=== PATIENT | female | born 1940 | race Caucasian/White ===

== ENCOUNTER 2017-08-01 14:42 | Inpatient (IN) | payer MEDICARE, OTHER ==
[~2017-08-01] VITALS: Ht 157.5 cm; Wt 70.8 kg
--- NOTE | ~2017-08-01 | EKG ---
[place] [address] ELECTROCARDIOGRAM REPORT Name: BACILIO LEZAMA [id number] Admission: 08/01/17 Attend Phys: Discharge: Date of : 38 Report #: [id number] THIS REPORT FOR: //name// [facility] ED Test Date: 2017-08-01 Test Time: 15:19:17 Pat Name: BACILIO LEZAMA Department: Room: Gender: F Valuation Manager: : 1940 Requested By: Tara Mckinney Order Number: [id number] MD: Measurements Intervals [place] Rate: 112 P: -79 WV: 143 QRS: 32 QRSD: 136 T: 50 QT: 313 QTc: 428 Interpretive Statements Sinus or ectopic atrial tachycardia Nonspecific intraventricular conduction delay Minimal ST depression, diffuse leads Baseline wander in lead(s) I,II,aVR Compared to ECG 05/07/2017 12:49:57 Intraventricular conduction delay now present ST (T wave) deviation now present Sinus rhythm no longer present Ventricular premature complex(es) no longer present [email or web address] By: [id number] [place], [place] /MICHAEL
[~2017-08-01 14:42] MED LIST: ANASTROZOLE1 MG PO; ASPIRIN81 M2 PO; ATORVASTATIN CA40 MG PO; B12INJ IM; BENICAR20 MG PO; CALCIUM 600 +1 EAC1 PO; COZAAR 25 MG TA25 M1 PO; CRESTOR40 MG PO; EFFEXOR25 MG PO; EFFEXOR75 MG PO; LORATIDINE 10 M10 M1 PO; MAGNESIUM OXID400 MG PO; MELATONIN5 M1 PO; METOPROLOL SUCC25 M1 PO; MULTIVITAMINS1 EAC7 PO; NEXIUM 40 MG CA40 M1 PO; NITROGLYCERIN0.4 MG SL; OXYBUTYNIN 5 MG5 M2 PO; POTASSIUM99 M1 PO; PRILOSEC 20 MG20 MG PO; RANITIDINE 150150 MG PO; SANCTURA XR60 M1 PO; TOPROL XL25 MG PO; ULTRA COQ1075 MG PO; VITAMIN B-12500 MCG PO; VITAMIN D10000 UNIT PO; VITAMIN D2000 UNIT PO; XANAX 0.25 MG0.25 MG PO
[2017-08-01 14:54] VITALS: BP 154/75
[2017-08-01 15:07] LABS: HEMATOCRIT 35.7 % (37.0-47.0); HEMOGLOBIN 12.1 gm/dL (12.0-15.0); MCH 32.6 pg (26.0-34.0); MCHC 33.7 g/dL (28.0-37.0); MCV 96.7 fL (80.0-100.0); MPV 7.6 fl. (7.2-11.1); NUCLEATED RBCS 0 /100WBC; PLATELET COUNT* 282 thou/uL (150-400); RDW-CV 13.7 % (10.5-14.5); WBC 14.7 thou/uL (4.0-11.0)
[2017-08-01 15:11] LABS: ANION GAP 9 mmol/L (7-16); BUN 13 mg/dL (7-18); CALCIUM 8.5 mg/dL (8.5-10.1); CHLORIDE 91 mmol/L (98-107); CO2 30 mmol/L (21-32); CREATININE 1.3 mg/dL (0.6-1.3); GLUCOSE 124 mg/dL (70-99); POTASSIUM 3.4 mmol/L (3.5-5.1); SODIUM 130 mmol/L (136-145)
[2017-08-01 15:12] LABS: APTT 29.9 Seconds (25.0-31.3); INR 1.1; PROTIME 10.3 Seconds (9.20-11.50)
[2017-08-01] MEDS ORDERED: TOPROL XL25 MG PO (15:15)
[2017-08-01] MEDS ORDERED: DOXEPIN 25 MG C25 MG PO (15:16)
[2017-08-01] MEDS ORDERED: ZANTAC 150MG T150 MG PO (15:16)
[2017-08-01] MEDS ORDERED: OMEPRAZOLE40 MG PO (15:16)
[2017-08-01] MEDS ORDERED: IRON325 PO (15:16)
[2017-08-01] MEDS ORDERED: ZINC30 M1 PO (15:16)
[2017-08-01 15:20] LABS: SALICYLATE < 2.8 mg/dL (2.8-20.0)
[2017-08-01 15:21] LABS: ACETAMINOPHEN < 2 ug/mL (10-30); ALCOHOL < 10 mg/dL (<10)
[2017-08-01 15:22] LABS: ALBUMIN 3.4 g/dL (3.4-5.0); ALKALINE PHOSPHATASE 119 U/L (46-116); NT-PRO BRAIN NAT PEPTIDE 700 pg/mL (<300); SGOT 47 U/L (15-37); SGPT 46 U/L (30-65); TOTAL BILIRUBIN 0.7 mg/dL (<0.1-1.0); TOTAL PROTEIN 7.2 g/dL (6.4-8.2); TROPONIN-I LEVEL <0.06 ng/mL (<0.06)
[2017-08-01 15:34] LABS: ABSOLUTE LYMPHOCYTES 0.7 thou/uL (0.8-5.3); ABSOLUTE NEUTROPHILS 12.9 thou/uL (1.6-8.1)
[2017-08-01 15:35] LABS: PLATELET ESTIMATE ADEQUATE
[2017-08-01 17:57] VITALS: BP 114/57
[2017-08-01 18:47] VITALS: BP 129/106
--- NOTE | 2017-08-01 19:17 | NUR ---
RECEIVED PT FROM ER. PT 93% ON 4L NC. ADMISSION ASSESSMENT STARTED NOT COMPLETED - WILL DEFER TO ENTRY LEVEL TRUCK DRIVER. VSS. BED IN LOW POSITION. BED ALARM ON.
[2017-08-01 20:00] VITALS: BP 120/54
[2017-08-01 23:08] LABS: URINE BILIRUBIN NEGATIVE (Negative); URINE BLOOD TRACE (Negative); URINE CLARITY CLEAR; URINE COLOR YELLOW; URINE GLUCOSE-RANDOM NEGATIVE (Negative); URINE KETONES NEGATIVE (Negative); URINE LEUKOCYTES-REFLEX NEGATIVE (Negative); URINE NITRITE-REFLEX NEGATIVE (Negative); URINE PROTEIN NEGATIVE (Negative); URINE UROBILINOGEN 0.2 E.U./dl (0.2-1.0)
[2017-08-01 23:15] LABS: AMP/METHAMP Negative (Negative); BARBITURATES Negative (Negative); BENZODIAZEPINES Negative (Negative); COCAINE Negative (Negative); METHADONE Negative (Negative); OPIATES Negative (Negative); PCP Negative (Negative); THC Negative (Negative)
[2017-08-01 23:25] LABS: INFLUENZA A ANTIGEN None Detected (None Detect)
[2017-08-01 23:50] VITALS: BP 117/53
[2017-08-02] VITALS (9 sets, daily range): BP systolic 96–148; BP diastolic 37–61
[2017-08-02 05:15] LABS: CALCIUM 7.4 mg/dL (8.5-10.1); CREATININE 1.1 mg/dL (0.6-1.3); MAGNESIUM 1.5 mg/dL (1.8-2.4); POTASSIUM 3.9 mmol/L (3.5-5.1)
--- NOTE | 2017-08-02 05:18 | NUR ---
RECEIVED REPORT FROM STALIN VASQUEZ AT 1915. NURSING ASSESSMENT COMPLETED AT START OF SHIFT, PT VOICED NO CONCERNS, AAOX4, DROWSY, DENIES PAIN THIS SHIFT, ON TELE MONITOR TRACING SINUS RHYTHM. FALL PRECAUTIONS IN PLACE, HOURLY ROUNDING COMPLETED, CALL LIGHT WITHIN REACH. PT POSITIVE FOR INFLUENZA B, PLACED IN ISOLATION.
[2017-08-02 05:37] LABS: HEMATOCRIT 33.2 % (37.0-47.0); HEMOGLOBIN 10.8 gm/dL (12.0-15.0); MCH 32.9 pg (26.0-34.0); MCHC 32.4 g/dL (28.0-37.0); MCV 101.6 fL (80.0-100.0); MPV 7.9 fl. (7.2-11.1); RBC 3.27 mil/uL (4.20-5.00); RDW-CV 13.9 % (10.5-14.5); WBC 13.1 thou/uL (4.0-11.0)
--- NOTE | 2017-08-02 13:08 | EKG ---
[place] [address] ELECTROCARDIOGRAM REPORT Name: BACILIO LEZAMA Room: [address] ADM IN M.R.#: [id number] Admission: 08/01/17 Attend Phys: Annmarie Tapia MD Discharge: Date of : 39 Report #: [id number] THIS REPORT FOR: //name// [facility] ED Test Date: 2017-08-01 Test Time: 15:19:17 Pat Name: BACILIO LEZAMA Department: Room: [facility] Gender: F Salesperson Furniture: MS : 1940 Requested By: Tara Mckinney Order Number: [id number] MD: Abdias Menon Measurements Intervals [place] Rate: 112 P: -79 UT: 143 QRS: 32 QRSD: 136 T: 50 QT: 313 QTc: 428 Interpretive Statements Sinus or ectopic atrial tachycardia Nonspecific intraventricular conduction delay Minimal ST depression, diffuse leads Baseline wander in lead(s) I,II,aVR Compared to ECG 05/07/2017 12:49:57 Intraventricular conduction delay now present ST (T wave) deviation now present Sinus rhythm no longer present Ventricular premature complex(es) no longer present Electronically Signed On 08-02-2017 13:07:47 MACHINE ENGINEER by Abdias Menon [email or web address] <ELECTRONICALLY SIGNED> By: Abdias Menon MD, [facility] 08/02/17 1307 1519 1519 Abdias Menon MD, [facility] /EPI
--- NOTE | 2017-08-02 15:33 | NUR ---
CM ASSESSMENT: Pt is A&O. Resides at home with her . Independent with ADLs. No DME. Hx of HH, no SNF. Supportive family that is involved in POC. Pt plans to return home once medically stable. Following.
--- NOTE | 2017-08-02 15:43 | NUR ---
PT'S MEDICAL CHART REVIEWED. PT VOICES NO CONCERNS W/ REGARDS TO DISCHARGE TO HOME. PT INDICATES SHE HAS BEEN UP TO BATHROOM W/O NOTED PROBLEMS. PT DEMO INDEP BED MOB AND TRANSFERS, INDEP GAIT W/O DME SUPPORT IN ROOM. ACUTE PT SERVICES ARE NOT INDICATED AT THIS TIME.
--- NOTE | 2017-08-02 16:52 | NUR ---
PT PROGRESSING TOWARDS GOALS. NO COMPLAINTS OF PAIN. DENIES ANY SOA. TITRATED TO ROOM AIR PER RESPIRATORY THERAPY. UP IN ROOM WITH STANDBY ASSIST. GAIT IS STEADY. IVF INFUSING. TOLERATING HER DIET WELL WITHOUT NAUSEA OR VOMITING. HOURLY ROUNDING CHARTED. CALL LIGHT WITHIN REACH. WILL CONTINUE TO MONITOR.
[2017-08-03 03:50] VITALS: BP 117/60
--- NOTE | 2017-08-03 04:18 | NUR ---
ASSUMED CARE OF PT AT 1930, NURSING ASSESSMENT COMPLETED AT START OF SHIFT, PT CONTINUES ON TELE MONITOR, HOURLY ROUNDING COMPLETED, PT PROGRESSING TOWARDS GOALS, FALL PRECAUTIONS IN PLACE, CALL LIGHT WITHIN REACH, PT IN DROPLET PRECAUTIONS.
[2017-08-03 04:43] LABS: ABSOLUTE LYMPHOCYTES 1.3 thou/uL (0.8-5.3); ABSOLUTE MONOCYTES 0.4 thou/uL (0.0-1.2); BASOPHILS 0.1 %; EOSINOPHILS 0.4 %; HEMATOCRIT 25.6 % (37.0-47.0); LYMPHOCYTES 12.1 %; MCH 33.9 pg (26.0-34.0); MCHC 34.6 g/dL (28.0-37.0); MONOCYTES 3.6 %; MPV 8.2 fl. (7.2-11.1); NUCLEATED RBCS 0 /100WBC; PLATELET COUNT* 231 thou/uL (150-400); POLYS 83.8 %; RBC 2.61 mil/uL (4.20-5.00); RDW-CV 13.8 % (10.5-14.5); WBC 10.8 thou/uL (4.0-11.0)
[2017-08-03 04:50] LABS: HEMOGLOBIN 8.8 gm/dL (12.0-15.0)
[2017-08-03 05:11] LABS: ALBUMIN 2.3 g/dL (3.4-5.0); CALCIUM 7.2 mg/dL (8.5-10.1); CREATININE 1.1 mg/dL (0.6-1.3); MAGNESIUM 1.7 mg/dL (1.8-2.4); PHOSPHORUS* 2.2 mg/dL (2.5-4.9); POTASSIUM 3.6 mmol/L (3.5-5.1)
[2017-08-03 08:40] VITALS: BP 175/71
[2017-08-03 12:01] VITALS: BP 155/76
[2017-08-03 13:17] LABS: CALCIUM 7.6 mg/dL (8.5-10.1); CREATININE 1.1 mg/dL (0.6-1.3); MAGNESIUM 1.8 mg/dL (1.8-2.4); POTASSIUM 3.7 mmol/L (3.5-5.1)
--- NOTE | 2017-08-03 14:00 | NUR ---
ASSUMED CARE OF PT AFTER RECEIVING REPORT. VS WNL. SR ON MONITOR. ASSESSMENT COMPLETE AND DOCUMENTED. PT STATES SHE IS UNDER A LOT OF STRESS AT HOME. STATES THAT SHE IS CAREGIVER FOR HER . PROVIDED THERAPEUTIC COMMUNICATION TECHNIQUE: LISTENING, PRESENCE. PT STATES THAT HER & FAMILY IN THEIR HOME HAVE THE FLU ALSO. IV AZITHROMYCIN INFUSING. PT CALLED FOR ASSIST, STATED THAT IV IS HURTING AND WANTED IT STOPPED. IV INFUSION DISCONTINUED AT PT REQUEST. RETURNED TO ROOM AND PT HELD UP IV CATHETER AND STATED THAT SHE HAD TAKEN THE IV OUT. SHE REFUSED A NEW START OF IV. CONTACTED DR. FRIEDMAN, WHO GAVE ORDER FOR ORAL AZITHROMYCIN AND PANTOPRAZOLE.
--- NOTE | 2017-08-03 15:42 | NUR ---
RECIEVED O.T. EVAL AND CHART REVIEWED. PT. IS UP AD MICHEAL IN ROOM AND REQUIRES NO ASSIST FOR ADLS. PT. AGREED THAT SHE DOESN'T HAVE O.T. NEEDS AND HAD JUST GOTTEN OUT OF THE SHOWER. NO O.T. SERVICES ARE INDICATED AT THIS TIME SINCE PT. IS AT MOD I/INDEPENDENT LEVEL FOR ADLS.
[2017-08-03 16:08] VITALS: BP 137/61; BP 167/61
[2017-08-03 20:00] VITALS: BP 164/66
--- NOTE | 2017-08-03 22:09 | NUR ---
PT REFUSED IV MULTIPLE TIMES THIS SHIFT DESPITE VERBAL EDUCATION ON NEED FOR ANTIBITOCS. PT STATES "I AM DONE HAVING MY ARMS TORN UP" "THEY HURT TOO BAD" THIS RN NOTIFIED THE COMMISSIONS SPECIALIST PHYSICIAN, HE STATED THEY WILL NEED TO READDRESS IN THE AM. PT ALSO REFUSED HER BED ALARM STATING THAT SHE IS NOT A FALL RISK AND CAN WALK JUST FINE. BED ALARM IS OFF AT THIS TIME.
[2017-08-04] VITALS: BP 142/59
[2017-08-04 04:00] VITALS: BP 160/75
[2017-08-04 04:20] LABS: HEMATOCRIT 27.3 % (37.0-47.0); HEMOGLOBIN 9.4 gm/dL (12.0-15.0); MCH 33.4 pg (26.0-34.0); MCHC 34.4 g/dL (28.0-37.0); MPV 7.8 fl. (7.2-11.1); RBC 2.81 mil/uL (4.20-5.00); RDW-CV 13.7 % (10.5-14.5); WBC 9.7 thou/uL (4.0-11.0)
[2017-08-04 04:27] LABS: CREATININE 1.1 mg/dL (0.6-1.3); POTASSIUM 3.9 mmol/L (3.5-5.1)
--- NOTE | 2017-08-04 04:41 | NUR ---
ASSUMED PT CARE AT 1930, PT IS A&OX4 PT HAS REFUSED HER IVS THIS SHIFT WELL HAVING HER BED ALARM ON THIS SHIFT. PT WAS GIVEN LOTS OF VERBAL EDUCATION ON NEED FOR ANTIBITOICS AND NEED FOR BED ALARM. PT IS ON ISOLATION FOR FLU B. PT IS TRACING NSR ON THE MONITOR, ON 4L NC SATTING MID TO HIGH 90'S. BED IN LOW POSITION, CALL LIGHT IN REACH. HOURLY ROUNDING COMPLETED FOR PT SAFETY.
--- NOTE | 2017-08-04 07:25 | NUR ---
CHANGE OF SHIFT, BEDSIDE REPORT GIVEN ASSUNMED PATIENT CARE PATIENT SEEN AT BEDSIDE, ASLEEP
[2017-08-04 08:00] VITALS: BP 109/91
[2017-08-04 11:41] VITALS: BP 121/51
[2017-08-04 15:48] VITALS: BP 149/64
--- NOTE | 2017-08-04 19:30 | NUR ---
PATIENT REMAINS A AND O X 4 NSR LUNGS CTA/DIM/RA O2 SAT LOW TO MID 90S GOOD APPETITE LAST BM T-1 GOOD UO UP WITH STANDBY ASSIST TO BATHROOM L FA SKINTEAR GAUZE AND TAPE REFUSED IV ACCCESS, DR WILLARD NOTIFIED CO RYAN TREATED WITH TYLENOL AND RELIEVED CALL LIGHT IN PALCE AND INSTRUCTION GIVEN AND FOLLOEWED MRSA SWAB SENT ABN LABS HGB 9.4
[2017-08-04 20:00] VITALS: BP 145/58
[2017-08-05] VITALS: BP 132/65
[2017-08-05 04:00] VITALS: BP 147/63
--- NOTE | 2017-08-05 04:35 | NUR ---
PT REFUSING IV AND IVPB.
--- NOTE | 2017-08-05 04:39 | NUR ---
PT ALERT ORIENTED. TELEMETRY SHOWS SR. PT UP AD MICHEAL IN ROOM. REFUSE IV SL. REFUSE IV ABX. DENIES PAIN. WILL CONTINUE TO MONITOR.
[2017-08-05 04:59] LABS: CALCIUM 8.5 mg/dL (8.5-10.1); CREATININE 1.2 mg/dL (0.6-1.3); POTASSIUM 3.6 mmol/L (3.5-5.1)
[2017-08-05 09:00] VITALS: BP 109/79
--- NOTE | 2017-08-05 09:00 | NUR ---
ASSUMED PT. CARE AND RECEIVED REPORT AT 0730. PT A/OX4, VSS, MONITOR ON TRACING SR WITH PAC. PT. DENIES PAIN, BUT C/O HEADACHE AND CHRONIC BACK ITCHING. FULL ASSESSMENT COMPLETED, REFER TO CHARTING. PT ON RA @ 92%. PT. TREATED WITH TYLENOL FOR HEADACHE, DR. FIREDMAN NOTIFIED OF PT. COMPLAINT OF "ITCHY BACK". PT. REPORTS SHE TAKES ANTIHISTAMINE AT HOME TID, HOWEVER SHE DOES KNOW THE NAME. ORDER RECEIVED FOR PERIACTIN BID. PT. REMAINS IN DOPLET ISOLATION. CALL LIGHT IN REACH, WILL CONTINUE WITH PLAN OF CARE.
[2017-08-05 12:07] VITALS: BP 147/58
--- NOTE | 2017-08-05 12:17 | CON ---
[address] [address] CONSULTATION Name: LISEBACILIO MARIE Room: [address] IN M.R.#: [id number] Admission: 08/01/17 Attend Phys: Annmarie Tapia MD Discharge: Date of : 39 Report #: [id number] THIS REPORT FOR: //name// CC: Annmarie Birmingham DATE OF SERVICE: 08/04/2017 REASON FOR CONSULTATION: Anemia. REQUESTING PHYSICIAN: Dr. Tapia. HISTORY OF PRESENT ILLNESS: The patient is a 77-year-old woman who was admitted to the hospital with complaints of cough, generalized malaise and myalgia. She was found to have pneumonia and influenza B. She had normal hemoglobin on admission, but during the hospitalization she developed anemia. Hematology consult has been requested. The patient is feeling better today. She says her appetite is better. She is eating actually in the bed. She does not have complaints of shortness of breath. Continues to have some cough. She states that she does not have melena or diarrhea. She thinks she is updated on colonoscopy and she does not have a history of severe anemia, but occasionally when she is in the hospital, she has been told that she has mild anemia. Denies weight loss or bone pain. PAST MEDICAL HISTORY: Significant for coronary artery disease, history of breast cancer, hyperlipidemia, cardiac arrhythmias. FAMILY HISTORY: Noncontributory. SOCIAL HISTORY: She enjoys a couple of glasses several times a week of alcohol, does not smoke currently. REVIEW OF SYSTEMS: See above. PHYSICAL EXAMINATION: GENERAL: Reveals a well-developed, well-nourished female, not in acute distress. VITAL SIGNS: Blood pressure 121/51, heart rate is 80, temperature 98.0, respiration is 18. HEENT: Does not reveal thrush. HEART: Normal S1, S2. LUNGS: Clear. ABDOMEN: Soft. No organomegaly. EXTREMITIES: No edema. MENTAL STATUS: Alert, [place] [id number] CONSULTATION Name: ARSRIKANTHBACILIO MARIE Room: [address] IN ..#: [id number] Admission: 08/01/17 Attend Phys: Annmarie Tapia MD Discharge: Date of : 39 Report #: [id number] LABORATORY DATA: White count 9.7, hemoglobin 9.4, platelets 285. Sodium 139, potassium 3.9. Key test was negative. ASSESSMENT AND PLAN: Anemia, most likely secondary to current disease and bone marrow suppression due to infection/sepsis, since she has had mild anemia in the past, seems macrocytic, plan to order B12 and folate. Thank you very much for allowing me to participate in the care of this patient. I will follow the patient with you. We will see the patient on Sunday. There is no concern for hemolysis at this point. <ELECTRONICALLY SIGNED> By: Muna Wise MD 08/05/17 1217 1253 [id number] bonnie Ricketts
[2017-08-05 15:44] VITALS: BP 148/64
--- NOTE | 2017-08-05 19:52 | NUR ---
PT. STABLE THROUG OUT SHIFT. CONTINUES TO COMPLAIN ABOUT ITCHING TO BACK, HOME MED REORDERED AND GIVEN FOR SYMPTOMS. DR. FRIEDMAN ONTO UNIT, ORDERED CONTINUING IV ANTIBIOTICS DUE TO NEW CHEST XRAY. PT. REFUSING IV ACCESS. DR. FRIEDMAN AWARE AND DISCUSSED WITH PT, SHE STATED SHE WOULD THINK ABOUT IT. WHEN DR. FRIEDMAN LEFT THE ROOM SHE TOLD ME NO SHE DIDN'T LIKE THEM. PT. EDUCATED ON NEED FOR ANTIBIOTICS DUE TO NEW INFILTRATES/WORSENING XRAY. DISCUSSED MULTIPLE TIMES AND PT. CONTINUES TO REFUSE. PT. EDUCATED THAT HER BREATHING/SYMPTOMS COULD BECOME WORSE AND SHE MAY EMERGENTLY HAVE TO HAVE A LINE PLACED. PT. CONTINUES TO DECLINE IV BEING STARTED. SECOND RN ELSA DISCUSSED IV PLACEMENT WITH HER WELL, CONTINUED TO DECLINE. HOURLY ROUNDING COMPLETED THROUGH OUT THE DAY FOR PT. SAFETY.
[2017-08-05 20:00] VITALS: BP 125/44
[2017-08-06 00:47] VITALS: BP 121/66
--- NOTE | 2017-08-06 03:45 | NUR ---
ASSUMED PT CARE AT 1930, PT IS A&OX4, PT C/O SOME ITCHING THROUGHOUT THE SHIFT AND A HEADACHE. ON RA SATTING MID TO LOW 90'S. PT IS TRACING NSR ON THIS MONITOR, PT HAD AN EPISODE OF SVT, WITH A 4 BEAT RUN OF VTACH THIS SHIFT. PT IS ON ISOLATION FOR THE FLU. PT IS STILL REFUSING HER IV, EVEN AFTER EDUCATION ON NEED FOR AN IV WELL NEED FOR IV ANTIBITOTICS. PT HAS CONTINUED TO REFUSE. BED IN LOW POSITION, CALL LIGHT IN REACH, HOURLY ROUNDING COMPLETED FOR PT SAFETY.
[2017-08-06 04:10] VITALS: BP 125/68
[2017-08-06 04:41] LABS: CALCIUM 8.1 mg/dL (8.5-10.1); CREATININE 1.2 mg/dL (0.6-1.3); POTASSIUM 3.5 mmol/L (3.5-5.1)
[2017-08-06 08:34] VITALS: BP 149/67
[2017-08-06] MEDS ORDERED: CEFUROXIME500 MG PO (10:16)
[2017-08-06] MEDS ORDERED: AZITHROMYCIN 2250 MG PO (10:16)
[2017-08-06] MEDS ORDERED: MUCINEX600 MG PO (10:16)
[2017-08-06] MEDS ORDERED: OSELB75 PO (10:16)
[2017-08-06] MEDS ORDERED: FOLIC ACID1 MG PO (10:16)
[2017-08-06 10:51] VITALS: BP 149/67
[2017-08-06 13:32] VITALS: BP 149/67
--- NOTE | 2017-08-06 13:32 | NUR ---
PATIENT LEFT UNIT AT 1230. ALERT AND ORIENTED X4. UP AD MICHEAL IN ROOM. DENIES PAIN AND NAUSEA. NO IV AT TIME OF DISCHARGE. ALL PERSONAL ITEMS LEFT WITH PATIENT. DISCHARGE INSTRUCTIONS AND NEW MEDICATION INFORMATION SENT WITH PATIENT. VSS ON ROOM AIR. HOURLY ROUNDS HAVE BEEN MAINTAINED THROUGHOUT SHIFT. LEFT WITH DAUGHTER VIA CAR.
== END 2017-08-06 13:00 | disposition home or self-care (01) | DRG 871 ==
LOC: M.ERS 14:42 → M.2W 16:58 → M.TBA-ER 16:58 → M.2W 18:11
PROVIDERS: Emergency Medicine; Family Medicine; Nurse Practitioner Family; ADMIT Internal Medicine
DX: A41.9 Sepsis, unspecified organism (principal); J96.01 Acute respiratory failure with hypoxia; I26.99 Other pulmonary embolism without acute cor pulmonale; J15.9 Unspecified bacterial pneumonia; E87.1 Hypo-osmolality and hyponatremia; K21.9 Gastro-esophageal reflux disease without esophagitis; E78.00 Pure hypercholesterolemia, unspecified; I25.10 Atherosclerotic heart disease of native coronary artery without angina pectoris; D64.9 Anemia, unspecified; E87.6 Hypokalemia; J11.1 Influenza due to unidentified influenza virus with other respiratory manifestations; E83.39 Other disorders of phosphorus metabolism; E83.42 Hypomagnesemia; Z79.899 Other long term (current) drug therapy; Z88.0 Allergy status to penicillin; Z85.3 Personal history of malignant neoplasm of breast; Z95.5 Presence of coronary angioplasty implant and graft; Z90.710 Acquired absence of both cervix and uterus; I25.2 Old myocardial infarction; Z88.6 Allergy status to analgesic agent; Z88.2 Allergy status to sulfonamides; Z87.891 Personal history of nicotine dependence; Z79.82 Long term (current) use of aspirin; Z28.21 Immunization not carried out because of patient refusal

== ENCOUNTER 2017-10-06 20:11 | Inpatient (IN) | payer MEDICARE, OTHER ==
[~2017-10-06] VITALS: Ht 157.5 cm; Wt 35.2 kg
--- NOTE | ~2017-10-06 | PROC ---
[facility] [address] [place] [address] PROCEDURE REPORT Name: BACILIO LEZAMA Room: [address] IN M.R.#: [id number] Admission: 10/06/17 Attend Phys: Ar Hall, Discharge: 10/10/17 Date of : 39 Report #: [id number] THIS REPORT FOR: //name// FOR GI report, please see the Provation report in Perceptive 7 content. By: 0651Medical Records Staff WAYNE /DANNI
[~2017-10-06 20:11] MED LIST changes: +AZITHROMYCIN 2250 MG PO; +CEFUROXIME500 MG PO; +DOXEPIN 25 MG C25 MG PO; +FOLIC ACID1 MG PO; +IRON325 PO; +MUCINEX600 MG PO; +OMEPRAZOLE40 MG PO; +OSELB75 PO; +ZANTAC 150MG T150 MG PO; +ZINC30 M1 PO
[2017-10-06 20:17] VITALS: BP 125/52
[2017-10-06 20:33] LABS: ABSOLUTE EOSINOPHILS 0.1 thou/uL (0.0-0.7); ABSOLUTE LYMPHOCYTES 1.1 thou/uL (0.8-5.3); ABSOLUTE MONOCYTES 0.6 thou/uL (0.0-1.2); ABSOLUTE NEUTROPHILS 5.4 thou/uL (1.6-8.1); BASOPHILS 0.4 %; HEMATOCRIT 32.3 % (37.0-47.0); HEMOGLOBIN 11.2 gm/dL (12.0-15.0); LYMPHOCYTES 15.6 %; MCH 33.3 pg (26.0-34.0); MCHC 34.7 g/dL (28.0-37.0); MCV 95.9 fL (80.0-100.0); MONOCYTES 8.7 %; MPV 7.4 fl. (7.2-11.1); NUCLEATED RBCS 0 /100WBC; PLATELET COUNT* 279 thou/uL (150-400); POLYS 74.3 %; RBC 3.37 mil/uL (4.20-5.00); RDW-CV 13.4 % (10.5-14.5); WBC 7.3 thou/uL (4.0-11.0)
[2017-10-06 20:40] LABS: POTASSIUM 3.9 mmol/L (3.5-5.1)
[2017-10-06 20:44] LABS: ALBUMIN 3.8 g/dL (3.4-5.0); TOTAL BILIRUBIN 0.6 mg/dL (<0.1-1.0)
[2017-10-06 22:09] VITALS: BP 125/58
[2017-10-06 23:00] VITALS: BP 152/62
[2017-10-06] MEDS ORDERED: ARICEPT10 M1 PO (23:26)
[2017-10-06] MEDS ORDERED: ROPINIROLE HCL5 MG PO (23:29)
[2017-10-06] MEDS ORDERED: VISTARIL 25 MG25 M1 PO (23:30)
--- NOTE | 2017-10-07 05:20 | NUR ---
PT TO FLOOR AT 2230. A&O X4 CALM COOPERITVE. PT MED/SURG STATUS. NPO FOR N/V. PT IS STAND BY ASSIST. VITALS WNL. FALL PRECAUTIONS IN PLACE. HOURLY ROUNDING FOR SAFETY.
[2017-10-07 08:00] VITALS: BP 152/49
[2017-10-07 08:33] LABS: ABSOLUTE EOSINOPHILS 0.1 thou/uL (0.0-0.7); ABSOLUTE LYMPHOCYTES 1.3 thou/uL (0.8-5.3); ABSOLUTE MONOCYTES 0.5 thou/uL (0.0-1.2); ABSOLUTE NEUTROPHILS 3.3 thou/uL (1.6-8.1); BASOPHILS 0.8 %; EOSINOPHILS 2.7 %; HEMOGLOBIN 9.8 gm/dL (12.0-15.0); LYMPHOCYTES 23.9 %; MCH 33.3 pg (26.0-34.0); MCHC 34.8 g/dL (28.0-37.0); MCV 95.6 fL (80.0-100.0); MONOCYTES 9.9 %; MPV 7.6 fl. (7.2-11.1); NUCLEATED RBCS 0 /100WBC; PLATELET COUNT* 226 thou/uL (150-400); POLYS 62.7 %; RBC 2.93 mil/uL (4.20-5.00); RDW-CV 13.7 % (10.5-14.5); WBC 5.3 thou/uL (4.0-11.0)
[2017-10-07 08:46] LABS: CALCIUM 7.6 mg/dL (8.5-10.1); CREATININE 1.4 mg/dL (0.6-1.3); MAGNESIUM 1.8 mg/dL (1.8-2.4); POTASSIUM 4.1 mmol/L (3.5-5.1); TOTAL BILIRUBIN 0.3 mg/dL (<0.1-1.0); TOTAL PROTEIN 5.7 g/dL (6.4-8.2)
--- NOTE | 2017-10-07 10:48 | NUR ---
ASSUMED PT CARE AT 0700 PT IS ALERT AND ORIENTED X 4 PT IS UP WITH SBA PT IS A FALL RISK BED ALARM IS ON, PT IS MED SURG STATUS PT VSS PT DENIES NAUSEA OR VOMITING, PT USES CALL LIGHT APPRORPIATELY, PT IS PLESANT AND COOPERATIVE, WILL CONTINUE TO MONITOR
--- NOTE | 2017-10-07 12:25 | EKG ---
[place] [address] ELECTROCARDIOGRAM REPORT Name: BACILIO LEZAMA Room: [address] ADM IN M.R.#: [id number] Admission: 10/06/17 Attend Phys: Ar Hall, Discharge: Date of : 39 Report #: [id number] THIS REPORT FOR: //name// [facility] ED Test Date: 2017-10-06 Test Time: 20:34:23 Pat Name: BACILIO LEZAMA Department: Room: [facility] Gender: F Executive Assistant To President: BD : 1940 Requested By: Tesfaye Cruz Order Number: [id number] MD: Osvaldo Christine Measurements Intervals [place] Rate: 59 P: 72 AL: 158 QRS: 36 QRSD: 90 T: 59 QT: 429 QTc: 425 Interpretive Statements Sinus rhythm Atrial premature complexes Compared to ECG 08/01/2017 15:19:17 Atrial premature complex(es) now present Intraventricular conduction delay no longer present ST (T wave) deviation no longer present Electronically Signed On 10-07-2017 12:25:20 CONTROL SYSTEMS DESIGNER by Osvaldo Christine [email or web address] <ELECTRONICALLY SIGNED> By: Osvaldo Christine MD, FACC 10/07/17 1225 33 33 Osvaldo Christine MD, [facility] /EPI
[2017-10-07 16:00] VITALS: BP 112/43
[2017-10-08] VITALS: BP 123/54
[2017-10-08 03:51] VITALS: BP 150/66
[2017-10-08 05:26] LABS: ABSOLUTE LYMPHOCYTES 0.8 thou/uL (0.8-5.3); ABSOLUTE MONOCYTES 0.4 thou/uL (0.0-1.2); ABSOLUTE NEUTROPHILS 5.5 thou/uL (1.6-8.1); BASOPHILS 0.2 %; EOSINOPHILS 0.1 %; HEMATOCRIT 27.2 % (37.0-47.0); HEMOGLOBIN 9.4 gm/dL (12.0-15.0); LYMPHOCYTES 11.2 %; MCH 33.3 pg (26.0-34.0); MCHC 34.6 g/dL (28.0-37.0); MCV 96.4 fL (80.0-100.0); MONOCYTES 5.9 %; MPV 8.2 fl. (7.2-11.1); NUCLEATED RBCS 0 /100WBC; PLATELET COUNT* 229 thou/uL (150-400); POLYS 82.6 %; RBC 2.82 mil/uL (4.20-5.00); RDW-CV 13.9 % (10.5-14.5); WBC 6.7 thou/uL (4.0-11.0)
[2017-10-08 05:51] LABS: CREATININE 1.2 mg/dL (0.6-1.3); POTASSIUM 4.9 mmol/L (3.5-5.1); TOTAL BILIRUBIN 0.2 mg/dL (<0.1-1.0); TOTAL PROTEIN 5.5 g/dL (6.4-8.2)
[2017-10-08 09:00] VITALS: BP 144/78
--- NOTE | 2017-10-08 11:02 | NUR ---
MET WITH PT TO DISCUSS HOME SITUATION/DC PLANNING. PT LIVES WITH SPOUSE, THEIR SON AND DIL LIVE WITH THEM. PT IS INDEPENDENT AND ACTIVE. USES NO EQUIPMENT OR HOME CARE. SHE PLANS TO RETURN HOME AT DC. WILL FOLLOW
--- NOTE | 2017-10-08 11:09 | NUR ---
ASSUMED PT CARE AT 0700 PT IS ALERT AND ORIENTED X 4 PT DENIES PAIN OR SOA ON RA, PT IS A FALL RISK HAS HISTORY OF FALLS BED ALARM IS ON, PT IS MED SURG STATUS, PT HAS FLUIDS RUNNING, PT IS PLEASANT AND COOPERATIVE, PT VSS PT IS STABLE ON FEET, WILL CONTINUE TO MONITOR
[2017-10-08 12:00] VITALS: BP 129/52
--- NOTE | 2017-10-08 12:26 | NUR ---
Nutrition: Pt seen for BMI 14.2. Actual wt is 149#; it has been entered into InfluxDB inaccurately. RD looked in on pt, who was sleeping, and she is NOT underweight. True BMI is 27.4. Usual wt is 150#. IVF running. Poor appetite this morning. Albumin 3. Pt appears at low risk at this time. Will follow up per protocol.
[2017-10-08 15:39] LABS: URINE BILIRUBIN NEGATIVE (Negative); URINE BLOOD NEGATIVE (Negative); URINE CLARITY CLEAR; URINE COLOR YELLOW; URINE GLUCOSE-RANDOM NEGATIVE (Negative); URINE KETONES NEGATIVE (Negative); URINE LEUKOCYTES-REFLEX NEGATIVE (Negative); URINE NITRITE-REFLEX NEGATIVE (Negative); URINE PROTEIN NEGATIVE (Negative); URINE SPECIFIC GRAVITY <= 1.005 (1.005-1.030); URINE UROBILINOGEN 0.2 E.U./dl (0.2-1.0)
[2017-10-08 17:00] VITALS: BP 122/77
[2017-10-08 19:50] VITALS: BP 131/42
[2017-10-09 04:13] VITALS: BP 170/66
[2017-10-09 05:07] LABS: ABSOLUTE EOSINOPHILS 0.1 thou/uL (0.0-0.7); ABSOLUTE LYMPHOCYTES 1.1 thou/uL (0.8-5.3); ABSOLUTE MONOCYTES 0.5 thou/uL (0.0-1.2); ABSOLUTE NEUTROPHILS 4.7 thou/uL (1.6-8.1); BASOPHILS 0.4 %; EOSINOPHILS 1.4 %; HEMATOCRIT 27.4 % (37.0-47.0); HEMOGLOBIN 9.4 gm/dL (12.0-15.0); LYMPHOCYTES 17.6 %; MCHC 34.3 g/dL (28.0-37.0); MCV 96.3 fL (80.0-100.0); MPV 8.3 fl. (7.2-11.1); NUCLEATED RBCS 0 /100WBC; PLATELET COUNT* 234 thou/uL (150-400); POLYS 72.6 %; RBC 2.85 mil/uL (4.20-5.00); RDW-CV 13.7 % (10.5-14.5); WBC 6.4 thou/uL (4.0-11.0)
[2017-10-09 05:46] LABS: CALCIUM 8.2 mg/dL (8.5-10.1); CREATININE 1.1 mg/dL (0.6-1.3); POTASSIUM 4.4 mmol/L (3.5-5.1); TOTAL BILIRUBIN 0.1 mg/dL (<0.1-1.0); TOTAL PROTEIN 5.5 g/dL (6.4-8.2)
--- NOTE | 2017-10-09 06:17 | NUR ---
ASSUMED CARE AT 1950, ASSESSMENT CHARTED. PATIENT ALERT/ORIENTED X4, RESTING IN BED. UP WITH ASSIST. DENIES PAIN OR NEEDS. DENIES NAUSEA/VOMITING. GIVEN ICE CREAM FOR HS SNACK. BED ALARM ON. REFUSING SCD'S. CALL LIGHT WITHIN REACH, ENCOURAGED TO CALL FOR NEEDS. 0130: IV TO RIGHT FOREARM INFILTRATED, REFUSING NEW IV TO BE PLACED AND REFUSING IVF. WILL MONITOR. STATES BEING NAUSEATED/VOMITING, UNSEEN, MEDS PER MAR WITH PARTIAL RELIEF NOTED. WILL MONITOR.
[2017-10-09 08:30] VITALS: BP 152/70
[2017-10-09 09:29] LABS: AMP/METHAMP Negative (Negative); BARBITURATES Negative (Negative); BENZODIAZEPINES Negative (Negative); COCAINE Negative (Negative); METHADONE Negative (Negative); OPIATES Negative (Negative); PCP Negative (Negative); THC Negative (Negative)
--- NOTE | 2017-10-09 18:23 | NUR ---
ASSUMED PT CARE AT 0730, FULL ASSESMENT DONE CHARTED. PT A/O X4, DENIES PAIN, DOES HAVE LLQ ABD PAIN WITH PALPATION. VSS, PT UP WITH SBA, DENIES N/V THIS AM. PLACED ON CLEAR LIQUID DIET, DOING WELL WITH DIET. PLAN FOR PT TO HAVE EGD TOMORROW AM. PT USES CALL LIGHT APPROPRIALTY. WILL CONTINUE WITH PLAN OF CARE.
[2017-10-09 20:00] VITALS: BP 149/64
--- NOTE | 2017-10-09 23:26 | NUR ---
RECIEVED REPORT AND ASSUMED CARE OF PATIENT AT 1930. ASSESSMENT AND VITALS COMPLETED CHARTED, VSS. PATIENT A&OX4. DENIES PAIN AND DISCOMFORT. PATIENT DENIES NAUSEA AT THIS TIME, HOWEVER, DOES STATE SHE HAS NOT HAD A BOWEL MOVEMENT SINCE SUNDAY. MILK OF MAGNESIUM ADMINISTERED PER EMAR. PATIENT REQUESTED BROTH AND JELLO, IN WHICH WAS PROVIDED. PATIENT WAS INFORMED THAT SHE WILL BE NPO AT MIDNIGHT. PATIENT VERBALIZES UNDERSTANDING. PATIENT'S GOAL IS SYMPTOM MANAGEMENT OF NAUSEA AND TREATMENT OF CONSTIPATION. CALL LIGHT WITHIN REACH
[2017-10-10] VITALS (8 sets, daily range): BP systolic 122–170; BP diastolic 41–91
[2017-10-10 05:26] LABS: ABSOLUTE EOSINOPHILS 0.1 thou/uL (0.0-0.7); ABSOLUTE LYMPHOCYTES 1.4 thou/uL (0.8-5.3); ABSOLUTE MONOCYTES 0.5 thou/uL (0.0-1.2); ABSOLUTE NEUTROPHILS 4.6 thou/uL (1.6-8.1); BASOPHILS 0.5 %; EOSINOPHILS 1.8 %; HEMATOCRIT 29.1 % (37.0-47.0); LYMPHOCYTES 20.4 %; MCH 33.1 pg (26.0-34.0); MCHC 34.4 g/dL (28.0-37.0); MCV 96.2 fL (80.0-100.0); MONOCYTES 7.8 %; MPV 8.3 fl. (7.2-11.1); NUCLEATED RBCS 0 /100WBC; PLATELET COUNT* 259 thou/uL (150-400); POLYS 69.5 %; RBC 3.02 mil/uL (4.20-5.00); RDW-CV 13.4 % (10.5-14.5); WBC 6.6 thou/uL (4.0-11.0)
[2017-10-10 05:40] LABS: CALCIUM 8.2 mg/dL (8.5-10.1); POTASSIUM 4.1 mmol/L (3.5-5.1); TOTAL BILIRUBIN 0.2 mg/dL (<0.1-1.0); TOTAL PROTEIN 5.7 g/dL (6.4-8.2)
--- NOTE | 2017-10-10 12:25 | NUR ---
ASSUMED CARE OF PATIENT THIS AM AT 1155. PATIENT HAS RETURNED FROM PACU. SHE IS ALERT AND ORIENTED X 4. SHE DENIES PAIN, NAUSEA AND VOMITING. PATIENT'S VITAL SIGNS ARE STABLE. PLANS FOR POSSIBLE DISCHARGE IF ABLE TO TOLERATE HER DIET. PATIENT IS RESTING AT THIS TIME.
--- NOTE | 2017-10-10 22:20 | NUR ---
RECIEVED REPORT AND ASSUMED CARE OF PATIENT AT 1930. VITAL SIGNS COMPLETED CHARTED, VSS. PATIENT A&OX4. EGD RESULTS NEGATIVE. DAY RN WAS UNABLE TO GET AHOLD OF DR. WARREN FOR THE PATIENT TO BE DISCHARGED, DESPITE MULTIPLE PAGES THROUGH THE ANSWERING SERVICE. PATIENT VERY UNHAPPY AND YELLING AT THIS RN HOW "REDICULOUS IT IS THAT SHE HAS TO STAY ANOTHER NIGHT WHEN KELVIN TOLD HER SHE COULD GO AFTER HER PROCEDURE." PATIENT TOLD ME THAT IF I GET AHOLD OF HIM TONIGHT TO TELL HIM "HE IS A PIECE OF SHIT AND UNPROFESSIONAL." PATIENT ENSURED THAT I UNDERSTAND HER FRUSTRATION AND REASSURED THAT I WOULD TRY AGAIN TO GET HER DISCHARGED TONIGHT, IF POSSIBLE. MEDICAL ASSISTANT PRN NOTIFIED OF SITUATION. PRADIP BRADY, CALLED DR. WARREN'S PERSONAL PHONE. DR. WARREN OK'D PATIENT TO BE DISCHARGED. ORDERS ALREADY ENTERED FROM DR. TURCIOS. DISCHARGE PAPERWORK DISCUSSED WITH PATIENT AND SCRIPT PROVIDED FOR DOMINGA. PATIENT VERBALIZES UNDERSTANDING OF INSTRUCTIONS. PATIENT INSTRUCTED THAT SHE WOULD STILL NEED TO TAKE HOME HS MEDICATIONS WHEN SHE GETS HOME. PATIENT'S BELONGINGS GATHERED. IV DC'D. PATIENT ESCORTED TO ER EXIT WITH CHANGE ROOM ATTENDANT AND LEFT WITH A FRIEND.
--- NOTE | 2017-10-11 14:51 | CON ---
[address] [address] CONSULTATION Name: LISEBACILIO MARIE Room: [address] IN M.R.#: [id number] Admission: 10/06/17 Attend Phys: Ar Hall, Discharge: 10/10/17 Date of : 39 Report #: [id number] THIS REPORT FOR: //name// CC: Rogerio Hall DATE OF SERVICE: 10/09/2017 ADDENDUM Consult number is [id number]. I have personally seen and examined the patient and reviewed labs and imaging studies. The patient with personal history of breast cancer who presents with left-sided abdominal pain, nausea, vomiting and constipation. The patient also had increase in level of her creatinine secondary to dehydration. We will go ahead and perform an upper endoscopy. I will try to find out her previous colonoscopy report. If we do not find anything in her upper scope, we will consider colonoscopy as well. <ELECTRONICALLY SIGNED> By: Fredy Rodriguez MD 10/11/17 1451 1519 1938Fredy Rodriguez MD /nt
--- NOTE | 2017-10-11 14:51 | CON ---
[address] [address] CONSULTATION Name: LISEBACILIO MARIE Room: [address] IN M.R.#: [id number] Admission: 10/06/17 Attend Phys: Ar Hall, Discharge: 10/10/17 Date of : 39 Report #: [id number] THIS REPORT FOR: //name// CC: Rogerio Birmingham DO Ar Hall DICTATED BY: Abril Martines [facility] DATE OF SERVICE: 10/09/2017 Please note at the time of this dictation, the patient was seen and physically examined by myself. REASON FOR CONSULTATION: Nausea, vomiting and abdominal pain. HISTORY OF PRESENT ILLNESS: This is a pleasant 77-year-old female who has been seen by our practice before, who started having abrupt onset of nausea and vomiting that started on Sunday in the morning that lasted through all evening, prompting her to come in to be further evaluated when she could not hold anything down. The patient was seen in our office back in June for similar nausea and vomiting after she had already had her gallbladder removed. She was given a scopolamine patch and to let us know how her symptoms were, but had never heard anything back from her again until we were consulted at this time. She states since admission her nausea has improved. She did have some vomiting last evening. She states her vomiting is all bile in nature. She states her bowels normally go once or twice a day, soft and formed with no issues. However, since she really has not been eating and doing a lot of vomiting, her bowels have not moved since Sunday. The patient did have a colonoscopy back in 2013 that showed a tubular adenoma with her followup colons as p.r.n. The patient does state that with her nausea and vomiting she denied any fever, chills, diarrhea or any bright red blood or any coffee-ground emesis. ALLERGIES: PENICILLIN, SULFA AND CODEINE. MEDICATIONS: From home include Toprol, doxepin, Zantac, iron, zinc, aspirin, Xanax, oxybutynin, Cozaar, vitamin D, B12, and omeprazole. PAST MEDICAL HISTORY: Significant for breast cancer, gastroesophageal reflux disease, high cholesterol, myocardial infarction. PAST SURGICAL HISTORY: She has had stent placement, hysterectomy, bilateral eye surgery, bladder sling, facelift and a tummy tuck. FAMILY HISTORY: Noncontributory. Negative for [place] [address] CONSULTATION Name: BACILIO LEZAMA Room: [address]#: [id number] Admission: 10/06/17 Attend Phys: Ar Hall, Discharge: 10/10/17 Date of : 38 Report #: [id number] SOCIAL HISTORY: Denies any tobacco use, alcohol socially and denies any illegal drug use. REVIEW OF SYSTEMS: Twelve-point review of systems is essentially negative except for what is mentioned in the HPI. PHYSICAL EXAMINATION: VITAL SIGNS: Temperature 36.6, pulse 55, respirations 18, blood pressure 170/66. HEART: Regular rate and rhythm. LUNGS: Clear. ABDOMEN: Soft, positive bowel sounds in all 4 quadrants with some epigastric tenderness noted to palpation. LABORATORY DATA: Hemoglobin on admission was 11.2, probably because she was dehydrated, is down to her normal at 9.4, which she normally ranges 9-10, hematocrit is 27.4, white count is 6.4, platelets 234. Sodium 141, potassium 4.4, chloride 107, CO2 of 27, BUN is 17, creatinine is 1.1, GFR is 48 and glucose is 115. Her LFTs are completely normal. CT of the abdomen and pelvis showed colonic diverticulosis in the distal colon, otherwise negative and absent gallbladder. IMPRESSION: 1. Nausea and vomiting. 2. Left-sided abdominal discomfort. 3. Chronic anemia. 4. History of breast cancer. PLAN: 1. EGD tomorrow. 2. Clear liquids. 3. Further recommendations to be made once the procedure has been performed. Thank you for allowing us to participate in this patient's care. Please do not hesitate to call with any questions in regard to this consult. <ELECTRONICALLY SIGNED> By: Fredy Rodriguez MD 10/11/17 1451 1040 [id number] Rodriguez MD /nt
== END 2017-10-10 21:35 | disposition home or self-care (01) | DRG 683 ==
LOC: M.ERS 20:11 → M.2W 21:07 → M.TBA-ER 21:07 → M.2W 22:24
PROVIDERS: Family Medicine; Internal Medicine; ADMIT Family Medicine
PROC: 3E0U33Z Introduction of Anti-inflammatory into Joints, Percutaneous Approach (ICD-10-PCS; principal; 2017-10-07)
PROC: 3E0U3BZ Introduction of Anesthetic Agent into Joints, Percutaneous Approach (ICD-10-PCS; principal; 2017-10-07)
PROC: 0DJ08ZZ Inspection of Upper Intestinal Tract, Via Natural or Artificial Opening Endoscopic (ICD-10-PCS; 2017-10-10)
DX: N17.9 Acute kidney failure, unspecified (principal); E44.1 Mild protein-calorie malnutrition; E86.0 Dehydration; K21.9 Gastro-esophageal reflux disease without esophagitis; D64.9 Anemia, unspecified; E86.1 Hypovolemia; M19.90 Unspecified osteoarthritis, unspecified site; E78.5 Hyperlipidemia, unspecified; I25.10 Atherosclerotic heart disease of native coronary artery without angina pectoris; I10 Essential (primary) hypertension; K44.9 Diaphragmatic hernia without obstruction or gangrene; M70.61 Trochanteric bursitis, right hip; E78.00 Pure hypercholesterolemia, unspecified; I25.2 Old myocardial infarction; Z95.5 Presence of coronary angioplasty implant and graft; Z90.710 Acquired absence of both cervix and uterus; Z23 Encounter for immunization; Z85.3 Personal history of malignant neoplasm of breast; Z79.82 Long term (current) use of aspirin; Z79.899 Other long term (current) drug therapy; Z88.0 Allergy status to penicillin; Z88.2 Allergy status to sulfonamides; Z88.5 Allergy status to narcotic agent

== ENCOUNTER 2017-11-22 22:30 | Emergency (ER) | payer MEDICARE, OTHER ==
[~2017-11-22] VITALS: Ht 160 cm; Wt 67.1 kg
[~2017-11-22 22:30] MED LIST changes: +ARICEPT10 M1 PO; +ROPINIROLE HCL5 MG PO; +VISTARIL 25 MG25 M1 PO
[2017-11-22] MEDS ORDERED: NORCO 10-325 T1 EACH PO (22:52)
[2017-11-22] MEDS ORDERED: PROTONIX40 M1 PO (22:52)
[2017-11-22] MEDS ORDERED: HYDROCHLOROTH12.5 M1 PO (22:54)
[2017-11-22] MEDS ORDERED: NEXIUM40 MG PO (22:57)
[2017-11-22] MEDS ORDERED: TUMS PO (22:57)
[2017-11-22] MEDS ORDERED: CALCIUM 500 +1 EAC5 PO (22:58)
[2017-11-22] MEDS ORDERED: CO Q-10100 MG PO (22:59)
[2017-11-23] MEDS ORDERED: MEDROLDOSEPACK PO (00:33)
[2017-11-23 00:45] VITALS: BP 151/88
== END 2017-11-23 00:45 | disposition home or self-care (01) ==
LOC: M.ERS 22:30
DX: M25.551 Pain in right hip (principal); M54.31 Sciatica, right side; E78.00 Pure hypercholesterolemia, unspecified; K21.9 Gastro-esophageal reflux disease without esophagitis; Z95.5 Presence of coronary angioplasty implant and graft; Z90.710 Acquired absence of both cervix and uterus; Z88.0 Allergy status to penicillin; Z88.5 Allergy status to narcotic agent; Z88.1 Allergy status to other antibiotic agents

== ENCOUNTER 2017-12-21 05:38 | Inpatient (IN) | payer MEDICARE, OTHER ==
[~2017-12-21] VITALS: Ht 157.5 cm; Wt 72.1 kg
[~2017-12-21 05:38] MED LIST changes: +CALCIUM 500 +1 EAC5 PO; +CO Q-10100 MG PO; +HYDROCHLOROTH12.5 M1 PO; +MEDROLDOSEPACK PO; +NEXIUM40 MG PO; +NORCO 10-325 T1 EACH PO; +PROTONIX40 M1 PO; +TUMS PO
[2017-12-21 06:08] VITALS: BP 185/76
[2017-12-21 06:19] VITALS: BP 182/97
[2017-12-21 06:20] LABS: ABSOLUTE EOSINOPHILS 0.1 thou/uL (0.0-0.7); ABSOLUTE LYMPHOCYTES 2.5 thou/uL (0.8-5.3); ABSOLUTE MONOCYTES 0.6 thou/uL (0.0-1.2); ABSOLUTE NEUTROPHILS 4.8 thou/uL (1.6-8.1); BASOPHILS 0.4 %; EOSINOPHILS 1.6 %; HEMATOCRIT 35.7 % (37.0-47.0); LYMPHOCYTES 31.2 %; MCH 32.9 pg (26.0-34.0); MCHC 33.6 g/dL (28.0-37.0); MCV 97.7 fL (80.0-100.0); MONOCYTES 7.7 %; MPV 7.2 fl. (7.2-11.1); NUCLEATED RBCS 0 /100WBC; PLATELET COUNT* 383 thou/uL (150-400); POLYS 59.1 %; RBC 3.65 mil/uL (4.20-5.00); RDW-CV 14.4 % (10.5-14.5); WBC 8.2 thou/uL (4.0-11.0)
[2017-12-21 06:30] LABS: CALCIUM 8.9 mg/dL (8.5-10.1); CREATININE 1.4 mg/dL (0.6-1.3)
[2017-12-21 06:34] LABS: ALBUMIN 3.6 g/dL (3.4-5.0); TOTAL BILIRUBIN 0.3 mg/dL (<0.1-1.0); TOTAL PROTEIN 6.8 g/dL (6.4-8.2)
[2017-12-21 09:17] VITALS: BP 113/60
[2017-12-21 09:30] VITALS: BP 108/49
[2017-12-21 16:16] VITALS: BP 114/73
[2017-12-21 23:34] VITALS: BP 127/61
[2017-12-22 04:21] LABS: HEMATOCRIT 31.6 % (37.0-47.0); HEMOGLOBIN 10.8 gm/dL (12.0-15.0); MCHC 34.3 g/dL (28.0-37.0); MCV 96.5 fL (80.0-100.0); MPV 7.7 fl. (7.2-11.1); RBC 3.27 mil/uL (4.20-5.00); RDW-CV 14.2 % (10.5-14.5); WBC 6.6 thou/uL (4.0-11.0)
[2017-12-22 04:30] LABS: CALCIUM 7.9 mg/dL (8.5-10.1); CREATININE 1.2 mg/dL (0.6-1.3); MAGNESIUM 2.3 mg/dL (1.8-2.4); POTASSIUM 3.7 mmol/L (3.5-5.1)
[2017-12-22 08:20] VITALS: BP 162/69
[2017-12-22 16:00] VITALS: BP 154/76
[2017-12-22 21:29] LABS: % SATURATION 23 % (20-39); IRON 60 ug/dL (50-175)
[2017-12-22 23:29] VITALS: BP 128/59
[2017-12-23 04:27] LABS: HEMATOCRIT 34.5 % (37.0-47.0); HEMOGLOBIN 11.7 gm/dL (12.0-15.0); MCH 33.1 pg (26.0-34.0); MCHC 33.9 g/dL (28.0-37.0); MCV 97.6 fL (80.0-100.0); MPV 7.8 fl. (7.2-11.1); RBC 3.54 mil/uL (4.20-5.00)
[2017-12-23 04:51] LABS: ALBUMIN 3.1 g/dL (3.4-5.0); CALCIUM 8.1 mg/dL (8.5-10.1); CREATININE 1.1 mg/dL (0.6-1.3); MAGNESIUM 2.1 mg/dL (1.8-2.4); POTASSIUM 3.7 mmol/L (3.5-5.1); TOTAL BILIRUBIN 0.2 mg/dL (<0.1-1.0); TOTAL PROTEIN 5.8 g/dL (6.4-8.2)
[2017-12-23 10:45] VITALS: BP 144/61
[2017-12-23 15:32] VITALS: BP 147/61
[2017-12-24 07:45] VITALS: BP 150/78
[2017-12-24 10:26] VITALS: BP 150/78
--- NOTE | 2017-12-31 08:22 | CON ---
[address] [address] CONSULTATION Name: LISEBACILIO MARIE Room: [address] IN M.R.#: [id number] Admission: 12/21/17 Attend Phys: Ar Hall, Discharge: 12/24/17 Date of : 38 Report #: [id number] THIS REPORT FOR: //name// CC: Rogerio Durán DATE OF SERVICE: 12/23/2017 REQUESTING PHYSICIAN: Dr. Ar Hall. REASON FOR CONSULT: Constipation, nausea and vomiting. HISTORY OF PRESENT ILLNESS: This is a 77-year-old female with change in bowel habits for the past 2 months, who was in the hospital in early October for similar symptoms. At that time, the patient underwent upper endoscopy, which revealed a small hiatal hernia. She had reported that her last colonoscopy was 2 years prior, therefore we did not perform any colonoscopies. Reviewing her colonoscopy report, it seems like her last colonoscopy was in 2013 and was significant for tubular adenoma. She currently feels better as she was given enema and MiraLax and has had a couple of bowel movements. She denies abdominal pain, hematochezia, melena or hematemesis. Her nausea and vomiting also has resolved. PAST MEDICAL HISTORY: Significant for history of breast cancer, coronary artery disease status post CA, hyperlipidemia, gastroesophageal reflux disease, anxiety, hysterectomy, bilateral eye surgery, bladder sling, tummy tuck, facelift, and stenting. ALLERGIES: SIGNIFICANT TO SULFA, CODEINE AND PENICILLIN. MEDICATIONS: Please refer to hospital MAR. SOCIAL HISTORY: The patient may occasionally have alcoholic beverage, but denies tobacco or drug use. FAMILY HISTORY: Noncontributory. PHYSICAL EXAMINATION: VITAL SIGNS: Reveals blood pressure of 128/59, respiration 19, pulse 83, temperature 98.6. LUNGS: Clear. CARDIOVASCULAR: Regular. ABDOMEN: Soft, nontender, nondistended. Bowel sounds are positive. NEUROLOGIC: The patient is alert and oriented x 3. There [place] [address] CONSULTATION Name: GABACILIO DUKE WALLING Room: [address]#: [id number] Admission: 12/21/17 Attend Phys: Ar Hall, Discharge: 12/24/17 Date of : 39 Report #: [id number] LABORATORY DATA: Reveal sodium of 137, potassium 3.7, BUN is 20, creatinine 1.1, glucose is 148, AST is 15, ALT 24, alkaline phosphatase is 116, albumin 3.1. WBC is 7.0, hemoglobin is 11.7 with platelet of 305. IMAGING: CT of abdomen and pelvis was obtained on admission. This was significant for constipation and also low-density fluid throughout the small bowel, which may represent gastroenteritis. ASSESSMENT AND PLAN: I believe the patient's symptoms of nausea, vomiting and abdominal pain are all associated with her constipation. Since she has had a bowel movement her symptoms have completely resolved. Since her last colonoscopy was in 2013 and was significant for tubular adenoma and has had personal history of breast cancer, we will recommend a 2-day prep for a colonoscopy either as in or outpatient. <ELECTRONICALLY SIGNED> By: Fredy Rodriguez MD 12/31/17 0822 1329 [id number] Rodriguez MD /nt
== END 2017-12-24 12:22 | disposition home or self-care (01) | DRG 683 ==
LOC: M.ERS 05:38 → M.TBA-ER 07:56 → M.3W 07:56
PROVIDERS: Emergency Medicine; ADMIT Family Medicine
DX: N17.9 Acute kidney failure, unspecified (principal); E44.1 Mild protein-calorie malnutrition; K56.41 Fecal impaction; K21.9 Gastro-esophageal reflux disease without esophagitis; E78.5 Hyperlipidemia, unspecified; F41.9 Anxiety disorder, unspecified; D64.9 Anemia, unspecified; I10 Essential (primary) hypertension; I25.10 Atherosclerotic heart disease of native coronary artery without angina pectoris; E86.0 Dehydration; E78.00 Pure hypercholesterolemia, unspecified; Z95.818 Presence of other cardiac implants and grafts; Z90.710 Acquired absence of both cervix and uterus; Z85.3 Personal history of malignant neoplasm of breast; Z79.899 Other long term (current) drug therapy; Z88.5 Allergy status to narcotic agent; Z88.0 Allergy status to penicillin; Z88.2 Allergy status to sulfonamides; I25.2 Old myocardial infarction; Z79.82 Long term (current) use of aspirin

== ENCOUNTER → 2018-06-12 | Outpatient (CLI) | payer MEDICARE, OTHER | LOC: M.RAD 10:15 | DX: Z12.31 Encounter for screening mammogram for malignant neoplasm of breast (principal) ==

== ENCOUNTER → 2018-07-15 | Outpatient (CLI) | payer MEDICARE, OTHER | LOC: M.LAB 02:36 | DX: Z01.812 Encounter for preprocedural laboratory examination (principal) ==

== ENCOUNTER → 2018-07-22 | Outpatient (CLI) | payer MEDICARE, OTHER | LOC: M.MRI 10:58 | DX: N28.1 Cyst of kidney, acquired (principal); Z90.49 Acquired absence of other specified parts of digestive tract ==

== ENCOUNTER → 2018-09-10 | Outpatient (CLI) | payer MEDICARE, OTHER | LOC: M.NUC 09-04 15:41 | DX: K31.84 Gastroparesis (principal) ==

== ENCOUNTER 2019-05-08 16:10 | Emergency (ER) | payer MEDICARE, OTHER ==
[~2019-05-08] VITALS: Ht 157.5 cm; Wt 60.3 kg
[2019-05-08 17:23] LABS: ABSOLUTE BASOPHILS 0.1 thou/uL (0.0-0.2); ABSOLUTE EOSINOPHILS 0.4 thou/uL (0.0-0.7); ABSOLUTE LYMPHOCYTES 1.4 thou/uL (0.8-5.3); ABSOLUTE MONOCYTES 0.6 thou/uL (0.0-1.2); ABSOLUTE NEUTROPHILS 4.9 thou/uL (1.6-8.1); BASOPHILS 1.2 %; EOSINOPHILS 5.5 %; HEMATOCRIT 30.4 % (37.0-47.0); HEMOGLOBIN 10.7 gm/dL (12.0-15.0); LYMPHOCYTES 18.6 %; MCH 33.2 pg (26.0-34.0); MCHC 35.1 g/dL (28.0-37.0); MCV 94.6 fL (80.0-100.0); MONOCYTES 7.8 %; MPV 8.4 fl. (7.2-11.1); NUCLEATED RBCS 0 /100WBC; PLATELET COUNT* 264 thou/uL (150-400); POLYS 66.9 %; RBC 3.21 mil/uL (4.20-5.00); RDW-CV 13.2 % (10.5-14.5); WBC 7.3 thou/uL (4.0-11.0)
[2019-05-08 17:30] LABS: ANION GAP 7 mmol/L (7-16); BUN 23 mg/dL (7-18); CALCIUM 8.7 mg/dL (8.5-10.1); CHLORIDE 99 mmol/L (98-107); CO2 28 mmol/L (21-32); CREATININE 1.5 mg/dL (0.6-1.3); GLUCOSE 99 mg/dL (70-99); POTASSIUM 3.9 mmol/L (3.5-5.1); SODIUM 134 mmol/L (136-145)
[2019-05-08 17:39] LABS: ALBUMIN 3.4 g/dL (3.4-5.0); ALKALINE PHOSPHATASE 113 U/L (46-116); SGOT 15 U/L (15-37); SGPT 31 U/L (30-65); TOTAL BILIRUBIN 0.3 mg/dL (<0.1-1.0); TOTAL PROTEIN 6.4 g/dL (6.4-8.2); TROPONIN-I LEVEL <0.06 ng/mL (<0.06)
[2019-05-08] MEDS ORDERED: NORCO 5-325 TA1 EAC1 PO (18:21)
[2019-05-08 18:34] VITALS: BP 112/41
--- NOTE | 2019-05-09 10:35 | EKG ---
[place] [address] ELECTROCARDIOGRAM REPORT Name: ALLIEBACILIO DUKE [id number] Admission: 05/08/19 Attend Phys: Discharge: Date of : 39 Report #: [id number] THIS REPORT FOR: //name// [facility] ED Test Date: 2019-05-08 Test Time: 17:00:24 Pat Name: BACILIO LEZAMA Department: Room: Gender: F Naturalist: : 1940 Requested By: Jakob Arizmendi Order Number: [id number] MD: Abdias Menon Measurements Intervals [place] Rate: 69 P: 55 [place]: 182 QRS: 31 QRSD: 83 T: 61 QT: 405 QTc: 434 Interpretive Statements Sinus arrhythmia Compared to ECG 10/06/2017 20:34:23 no change Electronically Signed On 05-09-2019 10:35:14 CDT by Abdias Menon [email or web address] <ELECTRONICALLY SIGNED> By: Abdias Menon MD, [facility] 05/09/19 1035 1700 1700 Abdias Menon MD, FACC /EPI
== END 2019-05-08 18:34 ==
LOC: M.ERS 16:10
PROVIDERS: Emergency Medicine Emergency Medical Services
DX: M25.551 Pain in right hip (principal); M25.571 Pain in right ankle and joints of right foot; I10 Essential (primary) hypertension; E78.5 Hyperlipidemia, unspecified; I25.2 Old myocardial infarction; K21.9 Gastro-esophageal reflux disease without esophagitis; E78.00 Pure hypercholesterolemia, unspecified; Z85.3 Personal history of malignant neoplasm of breast; Z90.710 Acquired absence of both cervix and uterus; Z98.890 Other specified postprocedural states; Z88.5 Allergy status to narcotic agent; Z88.0 Allergy status to penicillin; Z88.2 Allergy status to sulfonamides; W18.39XA Other fall on same level, initial encounter; Y93.01 Activity, walking, marching and hiking; Y92.000 Kitchen of unspecified non-institutional (private) residence as the place of occurrence of the external cause; Y99.8 Other external cause status

== ENCOUNTER 2019-05-12 19:01 | Inpatient (IN) | payer MEDICARE, OTHER ==
[~2019-05-12] VITALS: Ht 160 cm; Wt 66.4 kg
[~2019-05-12 19:01] MED LIST changes: +NORCO 5-325 TA1 EAC1 PO
[2019-05-12 19:06] VITALS: BP 181/52
[2019-05-12] MEDS ORDERED: ZINC30 M1 PO (19:16)
[2019-05-12 19:24] LABS: ABSOLUTE BASOPHILS 0.1 thou/uL (0.0-0.2); ABSOLUTE EOSINOPHILS 0.6 thou/uL (0.0-0.7); ABSOLUTE MONOCYTES 0.6 thou/uL (0.0-1.2); ABSOLUTE NEUTROPHILS 2.9 thou/uL (1.6-8.1); BASOPHILS 1.4 %; EOSINOPHILS 9.9 %; HEMATOCRIT 30.4 % (37.0-47.0); HEMOGLOBIN 10.6 gm/dL (12.0-15.0); LYMPHOCYTES 32.3 %; MCH 32.9 pg (26.0-34.0); MCHC 34.9 g/dL (28.0-37.0); MCV 94.3 fL (80.0-100.0); MONOCYTES 9.3 %; MPV 7.9 fl. (7.2-11.1); NUCLEATED RBCS 0 /100WBC; PLATELET COUNT* 291 thou/uL (150-400); POLYS 47.1 %; RBC 3.23 mil/uL (4.20-5.00); WBC 6.2 thou/uL (4.0-11.0)
[2019-05-12 19:32] LABS: ANION GAP 6 mmol/L (7-16); BUN 17 mg/dL (7-18); CALCIUM 8.7 mg/dL (8.5-10.1); CHLORIDE 97 mmol/L (98-107); CO2 32 mmol/L (21-32); CREATININE 1.4 mg/dL (0.6-1.3); GLUCOSE 91 mg/dL (70-99); POTASSIUM 3.7 mmol/L (3.5-5.1); SODIUM 135 mmol/L (136-145)
[2019-05-12 19:33] LABS: APTT 24.6 Seconds (25.0-31.3); INR 0.9; PROTIME 9.5 Seconds (9.20-11.50)
[2019-05-12 19:47] LABS: ALBUMIN 3.6 g/dL (3.4-5.0); ALKALINE PHOSPHATASE 122 U/L (46-116); CK-MB MASS 1.1 ng/mL (<0.5-3.6); NT-PRO BRAIN NAT PEPTIDE 157 pg/mL (<300); SGOT 20 U/L (15-37); SGPT 27 U/L (30-65); TOTAL BILIRUBIN 0.3 mg/dL (<0.1-1.0); TOTAL PROTEIN 6.6 g/dL (6.4-8.2); TROPONIN-I LEVEL <0.06 ng/mL (<0.06)
[2019-05-12 20:20] LABS: URINE BILIRUBIN NEGATIVE (Negative); URINE BLOOD NEGATIVE (Negative); URINE CLARITY CLEAR; URINE COLOR YELLOW; URINE GLUCOSE-RANDOM NEGATIVE (Negative); URINE KETONES NEGATIVE (Negative); URINE LEUKOCYTES-REFLEX NEGATIVE (Negative); URINE NITRITE-REFLEX NEGATIVE (Negative); URINE PROTEIN NEGATIVE (Negative); URINE SPECIFIC GRAVITY 1.015 (1.005-1.030); URINE UROBILINOGEN 0.2 E.U./dl (0.2-1.0)
--- NOTE | 2019-05-12 20:53 | NUR ---
C/O LEFT SIDED CHEST DISCOMFORT. DR SILVESTRE NOTIFIED NEW ORDERS RECIEVED.
[2019-05-12 21:09] VITALS: BP 165/73
[2019-05-12 21:50] VITALS: BP 186/78
[2019-05-13 00:08] VITALS: BP 163/61
[2019-05-13 04:43] VITALS: BP 144/57
--- NOTE | 2019-05-13 05:23 | NUR ---
PATIENT ARRIVED ON UNIT AT APPROX 2130. ALERT AND ORIENTED TIMES FOUR. NOTED TO BE IMPULSIVE AND HARD TO REDIRECT. NO COMPLAINTS OF PAIN OR DISCOMFORT VERBALIZED.. NEW IV PLACED PER PATIENT REQUEST. FIRE HOSE CURER IN PLACE, NSR. HONEY GRADER AND BLENDER AND HOURLY ROUNDING COMPLETED DOCUMENTED.
[2019-05-13 07:45] VITALS: BP 140/59
--- NOTE | 2019-05-13 11:08 | EKG ---
[place] [address] ELECTROCARDIOGRAM REPORT Name: LISEBACILIO MARIE Room: [address] ADM IN M.R.#: [id number] Admission: 05/12/19 Attend Phys: Annmarie Tapia MD Discharge: Date of : 39 Report #: [id number] THIS REPORT FOR: //name// [facility] ED Test Date: 2019-05-12 Test Time: 19:09:47 Pat Name: BACILIO LEZAMA Department: Room: [facility] Gender: F Ops Manager: : 1940 Requested By: Tesfaye Cruz Order Number: [id number] MD: Osvaldo Christine Measurements Intervals [place] Rate: 68 P: 64 [place]: 174 QRS: 26 QRSD: 84 T: 59 QT: 375 QTc: 399 Interpretive Statements Sinus rhythm Compared to ECG 05/08/2019 17:00:24 Sinus arrhythmia no longer present Electronically Signed On 05-13-2019 11:08:34 CDT by Osvaldo Christine [email or web address] <ELECTRONICALLY SIGNED> By: Osvaldo Christine MD, [facility] 05/13/19 1108 08 08 Osvaldo Christine MD, FAC /EPI
--- NOTE | 2019-05-13 11:09 | EKG ---
[place] [address] ELECTROCARDIOGRAM REPORT Name: LISEBACILIO MARIE Room: [address] ADM IN M.R.#: [id number] Admission: 05/12/19 Attend Phys: Annmarie Tapia MD Discharge: Date of : 39 Report #: [id number] THIS REPORT FOR: //name// [facility] ED Test Date: 2019-05-12 Test Time: 20:58:35 Pat Name: BACILIO LEZAMA Department: Room: [facility] Gender: F Insurance Producer: : 1940 Requested By: Tesfaye Cruz Order Number: [id number] MD: Osvaldo Christine Measurements Intervals [place] Rate: 76 P: 74 [place]: 179 QRS: 39 QRSD: 93 T: 54 QT: 390 QTc: 439 Interpretive Statements Sinus arrhythmia Compared to ECG 05/08/2019 17:00:24 No significant changes Electronically Signed On 05-13-2019 11:08:51 CDT by Osvaldo Christine [email or web address] <ELECTRONICALLY SIGNED> By: Osvaldo Christine MD, [facility] 05/13/19 1108 57 57 Osvaldo Christine MD, FACC /EPI
[2019-05-13 12:00] VITALS: BP 183/69
--- NOTE | 2019-05-13 12:00 | NUR ---
MET WITH PT TO DISCUSS HOME SITUATION/DC PLANNING. PT LIVES WITH SPOUSE. STATES SHE IS NORMALLY INDEPENDENT BUT HAD 3 FALLS LATELY. USES NO EQUIPMENT AND HASN'T HAD HH. AWAIT THERAPY EVALS, NO FAMILY PRESENT. WILL FOLLOW
[2019-05-13] MEDS ORDERED: HYZAAR 50-12.51 EACH PO (12:14)
--- NOTE | 2019-05-13 18:21 | NUR ---
ASSUMED PT CARE AT 0730, FULL ASSESMENT DONE CHARTED. PT A/O X4, SR/PAC'S ON THE MONITOR, VSS, C/O PAIN IN LUMBAR BACK ON RIGHT SIDE. PT DENIES NEED FOR PAIN MEDS. PT IS AT TIMES FORGETFUL AND UNSTEADY ON HER FEET. SHE DOES NOT USE CALL LIGHT TO ASK FOR ASSISTANCE. SHE GETS UP FROM BED FREQENTLY BEFORE CALLING. BED ALARM IS ON. PT EDUCATED ON CALLING FOR HELP. WILL CONTINUE TO MONITOR.
[2019-05-13 20:00] VITALS: BP 174/57
[2019-05-13 23:53] VITALS: BP 134/65
[2019-05-14 04:00] VITALS: BP 168/53
--- NOTE | 2019-05-14 04:43 | NUR ---
ASSUMED PATIENT CARE AT 1900. PATIENT ALERT X2 AT THE BEGINNING OF SHIFT. SEVER BOUT OF CONFUSION NOTED WHEN SHE WOKE UP IN THE MIDDLE OF THE NIGHT. DID NOT KNOW WHERE SHE WAS AND KEPT TALKING ABOUT A PAINTING. VERY IMPULSIVE AND UNSTEADY. FALL RISK PRECAUTIONS IN PLACE. NO COMPLAINTS OF PAIN OR DISCOMFORT. FINANCIAL INVESTMENT MANAGER AND HOURLY ROUNDING COMPLETED CHARTED. DAUGHTER DID HELP HER TAKE A SHOWER LAST NIGHT.
[2019-05-14 07:40] VITALS: BP 158/62
--- NOTE | 2019-05-14 09:18 | NUR ---
ASSUMED PT CARE REPORT RECEIVED FROM NURSE. PT IS AOX4. ON RA. TRACING SINUS ARRYTHMIA ON MANAGER OF PLANNING. UP WITH ASSIST X1. LAST BOWEL MOVEMENT THIS AM AT 0830. R FOREARM IV SALINE LOCK INTACT. SKIN IS INTACT. PT COMPLAINS OF MILD PAIN TO TOUCH IN RIGHT LOWER ABDOMEN. PT ALSO STATES THAT SHE HAD VOMITING THIS AM MODERATE AMOUNT, YELLOW GREEN COLORED. MADE AWARE OF VOIMITING. ZOFRAN GIVEN ORDERED. CT OF ABD/PELVIS WAS ORDERED STAT. SAFETY IN PLACE. WILL CONTINUE TO MONITOR PT.
[2019-05-14 10:53] VITALS: BP 146/67
--- NOTE | 2019-05-14 11:11 | NUR ---
CONTINUE TO FOLLOW, PT GETTING GI CONSULT FOR N/V AND WT LOSS TODAY. MET WITH PT AND SANTANAR/MANOLO. PLAN IS FOR PT TO RETURN HOME AT [place] WITH HH, DISCUSSED OPTIONS AND [facility]OSE [facility]. CALLED AND MADE REF TO GLORIA, HE WILL PLAN TO VISIT WITH PT. DTR STATED SHE IS ARRANGING FOR EXTRA ASSISTANCE FOR PT AT HOME WT FAMILY AND FRIENDS SPOUSE IS ON WALKER AND NOT ABLE TO HELP PT. GAVE DPOA PAPERS FOR PT TO CONSIDER. WILL FOLLOW [facility] [phone] FAX [phone]
[2019-05-14 11:13] VITALS: BP 146/67
--- NOTE | 2019-05-14 11:48 | NUR ---
patient states she feels better without nausea after the administration of zofran. pt out of bed to chair. will continue to monitor
--- NOTE | 2019-05-14 14:21 | NUR ---
I HAVE REVIEWED THE STUDENT'S CHARTING.
--- NOTE | 2019-05-14 15:39 | NUR ---
PT MEDSURG STATUS SINCE 1130 AM.
[2019-05-14 16:09] VITALS: BP 109/64
[2019-05-14] MEDS ORDERED: NEURONTIN100 MG PO (17:04)
[2019-05-14 20:00] VITALS: BP 160/61
[2019-05-15 04:00] VITALS: BP 174/75
[2019-05-15 04:30] LABS: HEMATOCRIT 32.9 % (37.0-47.0); HEMOGLOBIN 11.4 gm/dL (12.0-15.0); MCH 32.7 pg (26.0-34.0); MCHC 34.7 g/dL (28.0-37.0); RBC 3.5 mil/uL (4.20-5.00); RDW-CV 13.3 % (10.5-14.5); WBC 8.1 thou/uL (4.0-11.0)
[2019-05-15 04:39] LABS: ALBUMIN 3.2 g/dL (3.4-5.0); CALCIUM 9.6 mg/dL (8.5-10.1); CREATININE 1.3 mg/dL (0.6-1.3); POTASSIUM 4.7 mmol/L (3.5-5.1); TOTAL BILIRUBIN 0.3 mg/dL (<0.1-1.0); TOTAL PROTEIN 6.3 g/dL (6.4-8.2)
--- NOTE | 2019-05-15 04:39 | NUR ---
ASSUMED PT CARE AT APPROX 1930. PT IS AWAKE AND ORIENTED X4 BUT CAN BE FORGETFUL. VSS ON ROOM AIR. ASSESSMENT DONE AND CHARTED.PT C/O SOME NAUSEA THAT IS RELEIVED BY ZOFRAN GIVEN PER MAR. PT DENIES PAIN. CALL LIGHT WITHIN REACH. HIGH FALL PRECAUTIONS IN PLACE. HOURLY ROUNDING DONE FOR PT SAFETY.
[2019-05-15] MEDS ORDERED: TRIAMCINOLONE A15 G1 TOP (08:13)
[2019-05-15] MEDS ORDERED: MICROZIDE12.5 MG PO (08:14)
[2019-05-15] MEDS ORDERED: TRAZODONE HCL50 MG PO (08:16)
[2019-05-15] MEDS ORDERED: AMITRIPTYLINE H25 M3 PO (08:18)
--- NOTE | 2019-05-15 08:27 | NUR ---
assumed pt care report received from nurse. pt is oax4, forgetful and appears to be anxious, lying in bed. vs taken. bp elevated. see chart. will give bp medication soon. medication list was sent from pt's pharmacy on 05/14. the medication list was entered on [employer] today under med rec. hospitalsit notified this morning about the update. HCTZ, amitriptylin, and other meds were added to med rec per medication list from pharmacy. pt complains of nausea and headache this morning will administer zofran and tylenol to patient. will continue to monitor pt.
[2019-05-15] MEDS ORDERED: TRANSDERM-SCOP1 EACH TRANSDERM (09:53)
--- NOTE | 2019-05-15 10:54 | NUR ---
cm faxed pt's d/c ordes and med list to [facility] (formerly [facility]) @ [phone].
[2019-05-15 10:56] VITALS: BP 146/67
[2019-05-15 11:06] VITALS: BP 146/67
[2019-05-15 11:14] VITALS: BP 146/67
[2019-05-15 11:52] VITALS: BP 123/66
--- NOTE | 2019-05-15 13:48 | NUR ---
PT LEFT FLOOR AT 1348 ACCOMPANIED BY VOLUNTEER AND HER EX DAUGHTER IN LAW ON A WHEELCHAIR. DISCHARGE INSTRUCTION GIVEN. SCRIPT FOR SCOPOLAMINE GIVEN
--- NOTE | 2019-05-15 14:14 | NUR ---
PT FAMILY CAME TO GET PT. PT FAMILY CONCERNED ABOUT HER ARICEPT SCRIPT THAT WAS NOT GIVEN . ACCORDING TO FAMILY ARICEPT IS NOT A HOME MEDICATION. ARICEPT IS NOT NOTED ON THE MEDICATION LIST THAT PT PROVIDED TO US. HOSPITALIST WAS PAGED ABOUT PT INQUIRY. WILL AWAIT FOR CALL BACK.
--- NOTE | 2019-05-15 14:23 | NUR ---
aricept was called in to pt pharmacy in [place].
--- NOTE | 2019-05-15 14:38 | NUR ---
IV LINE WAS REMOVED PRIOR TO DISCHARGE
--- NOTE | 2019-05-15 19:17 | CON ---
[address] [address] CONSULTATION Name: BACILIO LEZAMA Room: [address] IN M.R.#: [id number] Admission: 05/12/19 Attend Phys: Annmarie Tapia MD Discharge: 05/15/19 Date of : 39 Report #: [id number] THIS REPORT FOR: //name// CC: Annmarie [place] HISTORY OF PRESENT ILLNESS: This is a pleasant 78-year-old female, with past medical history significant for gastroesophageal reflux disease, coronary artery disease, hyperlipidemia, hypertension and a remote history of breast cancer, who is well known to our service, presenting for increased falls. The GI service has been consulted for evaluation of nausea and vomiting. The patient has had this issue of nausea and vomiting for several months now. She was initially seen in the outpatient clinic in 06/2018. The patient subsequently underwent an EGD and a colonoscopy in July of the same year. The EGD demonstrated normal-appearing esophagus, stomach and duodenum, except for a small hiatal hernia. Colonoscopy performed at that time demonstrated mild sigmoid diverticulosis and three polyps, which were removed and resected. On histopathology, the polyps were determined to be tubular adenomas. At this time, the patient was thought to have functional GI disorder and was placed on amitriptyline. The patient continues to report nausea and vomiting. She reports these symptoms only in response to passing bowel movements. If the patient does not have a bowel movement, she is relatively asymptomatic. The patient reports her weight has been stable and there are no other systemic symptoms, such as fevers and chills. The patient also denies any alarm symptoms such as hematemesis or hematochezia. PAST MEDICAL HISTORY: As mentioned above, the patient has a history of coronary artery disease, hyperlipidemia, gastroesophageal reflux disease, hypertension and personal history of breast cancer. PAST SURGICAL HISTORY: The patient has a history of back surgery in 2002, bladder repair and sling in 2009, lumpectomy for breast cancer in 2009, remote history of hemorrhoid surgery in 1964 and hysterectomy in 1982. SOCIAL HISTORY: The patient denies any smoking, alcohol or recreational drug use. FAMILY HISTORY: Reviewed and irrelevant. REVIEW OF SYSTEMS: In addition to those mentioned in the HPI, the patient has been experiencing frequent falls. Otherwise, comprehensive 10-point review of systems is negative. PHYSICAL EXAMINATION: VITAL SIGNS: Temperature 36.6, pulse rate 72, respirations 16 [place] [address] CONSULTATION Name: BACILIO LEZAMA [place] Room: [address] IN [facility]#: [id number] Admission: 05/12/19 Attend Phys: Annmarie Tapia MD Discharge: 05/15/19 Date of : 39 Report #: [id number] pressure 109/64. GENERAL: The patient is alert, awake and oriented x 3. HEENT: Pupils are equal, round and reactive to light and accommodation. Mucous membranes are moist. There is no congestion. LUNGS: Clear to auscultation bilaterally. CARDIOVASCULAR EXAMINATION: Rate and rhythm regular, S1, S2 present. ABDOMEN: Soft. Mild tenderness is present in the right lower quadrant. No guarding or rigidity. EXTREMITIES: Warm and well perfused. LABORATORY DATA: Hemoglobin 10.6, hematocrit 30.4, platelet count 291 and WBC count 6.2. INR 0.9. Sodium 135, potassium 3.7, chloride 97, bicarbonate 32, BUN 17 and creatinine 1.4. Total bilirubin 0.3, AST 20, ALT 27 and alkaline phosphatase 122. IMAGING: CT abdomen and pelvis seen demonstrates no acute intra-abdominal or pelvic abnormality. Mild distal colonic diverticulosis. Prior cholecystectomy and hysterectomy. ASSESSMENT AND PLAN: This is a pleasant 78-year-old female with history outlined above, who is admitted with frequent falls and is also noted to have nausea and vomiting. The patient did have extensive outpatient evaluation 0including EGD and colonoscopy and both of them were negative. The CT performed at the time of admission fails to demonstrate any significant intra-abdominal pathology. I would continue to treat her symptomatically for now. The patient will need a gastric emptying test performed; unfortunately, the one in our hospital is out of service. We can arrange for this to be done on an outpatient basis. Thank you for this consultation. <ELECTRONICALLY SIGNED> By: Jus Murphy MD 05/15/191916 54 36Jus Murphy MD /nt
--- NOTE | 2019-05-24 19:25 | EEG ---
[address] [address] EEG STUDY REPORT Name: BACILIO LEZAMA Room: [address] IN M.R.#: [id number] Admission: 05/12/19 Attend Phys: Annmarie Tapia MD Discharge: 05/15/19 Date of : 39 Report #: [id number] THIS REPORT FOR: //name// CC: Annmarie Beckmanblatt DATE OF SERVICE: 05/13/2019 This patient had repeated episode of falls and passing out. EEG was done by placing the electrodes by standard 10-20 system of electrode placement. Both referential and sequential montages were used for recording. Background activity in this patient's EEG is about 9 Hz and 30 microvolt. It is intermixed with some theta range slowing on both sides. Photic stimulation was unremarkable. Throughout the record, no active epileptiform activity was noticed. IMPRESSION: Mildly abnormal EEG because it is intermixed with theta range slowing on both sides. That is a nonspecific abnormality, which can occur with encephalopathy, effect of psychotropic medication, dementia, etc. Clinical correlation is recommended. <ELECTRONICALLY SIGNED> By: Robert Wagner MD 05/24/19 1925 1741 1802Pmarylou Wagner MD /nt
--- NOTE | 2019-05-24 19:25 | CON ---
[address] [address] CONSULTATION Name: ALLIESRIKANTHBACILIO MARIE Room: [address] IN M.R.#: [id number] Admission: 05/12/19 Attend Phys: Annmarie Tapia MD Discharge: 05/15/19 Date of : 39 Report #: [id number] THIS REPORT FOR: //name// CC: Annmarie [place] DATE OF SERVICE: 05/13/2019 HISTORY OF PRESENT ILLNESS: This is a 78-year-old female patient who was seen by me for episodes of falling down. History is poorly defined. She indicates she had 3 episodes of falling down. She does not remember anything about those episodes. During one of those episodes, she was standing in the kitchen and next thing she knows, she was on the floor. She does not know if she fell and had a big thud or she was able to gradually lower herself down. No witness is there, so we do not know if she had any seizure activity associated with this. REVIEW OF SYSTEMS: Indicates she is having some memory issues. She said in between, she is able to walk reasonably well. She had a prior history of hysterectomy. She does have a history of high cholesterol and stents. She has a history of breast carcinoma and back surgery. She did have some bladder issues at this time. She had LA in the past. She does indicate that she has a history of some depression and anxiety. She does not think she has been diagnosed with dementia, but she is on Aricept. She denies any new eye, ENT, cardiac, respiratory, GI, musculoskeletal, constitutional, dermatological, hematological, psychiatric, throat or allergic symptom associated with present symptomatology. PAST MEDICAL HISTORY: Positive for heart disease. FAMILY HISTORY: Negative for early age stroke. SOCIAL HISTORY: She denies the use of alcohol or tobacco. PHYSICAL EXAMINATION: Indicates she is alert. She is responsive. She can tell me what month and what date it is. She knows what hospital she is in. She did not know the president. Her memory is diminished, but she has baseline cognitive deficits as I understand from the patient's fund of knowledge is also diminished. Speech looks intact. Cranial nerve examination 2-12 was carried out and is mostly unremarkable. She has symmetrical strength, sensation, reflexes and tone in all 4 extremities. There is no cerebellar sign. There is no papilledema. There is no meningeal sign. Cardiac examination is unremarkable. No respiratory difficulty was noticed. Pulses are difficult to feel, but I think is palpable. There is no edema, cyanosis or jaundice. There is no thyroid mass. She is reasonably well-developed individual who does not have any dysmorphic features of eyes, ears and face. Her vision and hearing looks adequate. Blood pressure is 140/59, respiration is 18, pulse is 68, [address] [place] [address] CONSULTATION Name: [facility] Room: [address] IN M.R.#: [id number] Admission: 05/12/19 Attend Phys: Annmarie Tapia MD Discharge: 05/15/19 Date of : 38 Report #: [id number] temperature is 97.7. LABORATORY DATA: White count is 6.2 and GFR is 36. She did have a CT scan of the head that demonstrate diffuse atrophy. IMPRESSION: It is not possible to tell clinically what happened and the etiology of these symptoms. Neurologically, we will try to exclude the possibility of posterior fossa transient ischemic attack or seizures. She will also need a systemic workup to see if there is any systemic, especially cardiac etiology for that. RECOMMENDATIONS: I discussed all of it with the patient and my recommendation was as follows: 1. MRI of the brain. 2. MRA of the head. 3. EEG. 4. Continue cardiac workup, which I will defer to you. Further workup will depend upon the outcome of the above testing and we will follow up this patient with you. <ELECTRONICALLY SIGNED> By: Robert Wagner MD 05/24/19 1925 1016 1121Paralex Wagner MD /niki
== END 2019-05-15 14:30 | disposition home health service (06) | DRG 552 ==
LOC: M.ERS 19:01 → M.2W 20:06 → M.TBA-ER 20:06 → M.2W 21:12
PROVIDERS: Family Medicine; ADMIT Internal Medicine
DX: S32.039A Unspecified fracture of third lumbar vertebra, initial encounter for closed fracture (principal); M48.061 Spinal stenosis, lumbar region without neurogenic claudication; S32.049A Unspecified fracture of fourth lumbar vertebra, initial encounter for closed fracture; K21.9 Gastro-esophageal reflux disease without esophagitis; E78.00 Pure hypercholesterolemia, unspecified; I25.10 Atherosclerotic heart disease of native coronary artery without angina pectoris; E78.5 Hyperlipidemia, unspecified; I10 Essential (primary) hypertension; W18.39XA Other fall on same level, initial encounter; Z85.3 Personal history of malignant neoplasm of breast; Z95.5 Presence of coronary angioplasty implant and graft; Z90.710 Acquired absence of both cervix and uterus; I25.2 Old myocardial infarction; Z88.6 Allergy status to analgesic agent; Z88.0 Allergy status to penicillin; Z88.2 Allergy status to sulfonamides; Y93.89 Activity, other specified; Y92.098 Other place in other non-institutional residence as the place of occurrence of the external cause; Y99.8 Other external cause status

== ENCOUNTER → 2020-04-22 | Outpatient (CLI) | payer MEDICARE, OTHER ==
[~2020-04-22] MED LIST changes: +AMITRIPTYLINE H25 M3 PO; +HYZAAR 50-12.51 EACH PO; +MICROZIDE12.5 MG PO; +NEURONTIN100 MG PO; +TRANSDERM-SCOP1 EACH TRANSDERM; +TRAZODONE HCL50 MG PO; +TRIAMCINOLONE A15 G1 TOP
== END ==
LOC: M.RAD 13:41
PROVIDERS: ATTEND Family Medicine
DX: Z12.31 Encounter for screening mammogram for malignant neoplasm of breast (principal)

== ENCOUNTER → 2020-05-27 | Outpatient (CLI) | payer MEDICARE, OTHER | LOC: M.ULTRA 13:00 | DX: I73.9 Peripheral vascular disease, unspecified (principal) ==

== ENCOUNTER 2020-07-01 15:04 | Emergency (ER) | payer MEDICARE, OTHER ==
[~2020-07-01] VITALS: Ht 157.5 cm; Wt 59.9 kg
[2020-07-01] MEDS ORDERED: NITROSTAT0.4 M1 (15:13)
[2020-07-01 15:50] LABS: ABSOLUTE BASOPHILS 0.1 thou/uL (0.0-0.2); ABSOLUTE EOSINOPHILS 0.3 thou/uL (0.0-0.7); ABSOLUTE LYMPHOCYTES 2.3 thou/uL (0.8-5.3); ABSOLUTE MONOCYTES 0.6 thou/uL (0.0-1.2); ABSOLUTE NEUTROPHILS 3.7 thou/uL (1.6-8.1); BASOPHILS 1.3 %; EOSINOPHILS 4.7 %; HEMATOCRIT 30.8 % (37.0-47.0); HEMOGLOBIN 10.7 gm/dL (12.0-15.0); MCH 32.8 pg (26.0-34.0); MCHC 34.6 g/dL (28.0-37.0); MCV 94.7 fL (80.0-100.0); MONOCYTES 8.5 %; MPV 7.5 fl. (7.2-11.1); NUCLEATED RBCS 0 /100WBC; PLATELET COUNT* 285 thou/uL (150-400); POLYS 52.5 %; RBC 3.26 mil/uL (4.20-5.00); RDW-CV 13.8 % (10.5-14.5)
[2020-07-01 16:00] LABS: CALCIUM 8.3 mg/dL (8.5-10.1); CREATININE 1.2 mg/dL (0.6-1.3); POTASSIUM 3.8 mmol/L (3.5-5.1)
[2020-07-01 16:03] LABS: APTT 23.7 Seconds (25.0-31.3); PROTIME 10.3 Seconds (9.20-11.50)
[2020-07-01 16:14] LABS: ALBUMIN 3.5 g/dL (3.4-5.0); CK-MB MASS 1.8 ng/mL (<0.5-3.6); TOTAL BILIRUBIN 0.3 mg/dL (<0.1-1.0); TOTAL PROTEIN 6.7 g/dL (6.4-8.2)
[2020-07-01 18:53] VITALS: BP 151/52
== END 2020-07-01 18:54 | disposition home or self-care (01) ==
LOC: M.ERS 15:04
PROVIDERS: Family Medicine
DX: R07.89 Other chest pain (principal); K21.9 Gastro-esophageal reflux disease without esophagitis; E78.00 Pure hypercholesterolemia, unspecified; I25.2 Old myocardial infarction; Z79.899 Other long term (current) drug therapy; Z79.82 Long term (current) use of aspirin; Z88.0 Allergy status to penicillin; Z88.6 Allergy status to analgesic agent; Z88.2 Allergy status to sulfonamides; Z90.710 Acquired absence of both cervix and uterus

== ENCOUNTER 2020-10-06 16:13 | Observation (INO) | payer MEDICARE, OTHER ==
[~2020-10-06] VITALS: Ht 157.5 cm; Wt 58.1 kg
--- NOTE | ~2020-10-06 | CON ---
[address] [address] CONSULTATION Name: BACILIO LEZAMA Room: [address] Mala Fisher#: [id number] Admission: 10/06/20 Attend Phys: Thomas Whitehead MD Discharge: 10/07/20 Date of : 38 Report #: [id number] THIS REPORT FOR: cc: Zhane Chan Maggie M. DO ~ Osvaldo Christine MD [facility] DATE OF SERVICE: 10/07/2020 CARDIOLOGY CONSULT INDICATION: Atrial fibrillation and elevated troponin. HISTORY OF PRESENT ILLNESS: The patient is a very pleasant 80-year-old white female who reports her first myocardial infarction in 1998. She states she has had 3 stents placed since that time. She presented to her primary physician's office with complaint of some chest pain and was found to be in atrial fibrillation with a rapid ventricular response rate. The patient was brought to the hospital and has subsequently spontaneously converted to normal sinus rhythm. In this setting, she did have an elevation of her troponin. Troponin on arrival was 0.07 and peaked at 0.65. The remainder of her hospital stay has been unremarkable. PAST MEDICAL HISTORY: 1. Coronary artery disease. 2. Gastroesophageal reflux disease. 3. Hyperlipidemia. 4. History of left-sided breast cancer, status post resection. 5. Paroxysmal atrial fibrillation. PAST SURGICAL HISTORY: 1. Percutaneous coronary intervention x 3. 2. Hysterectomy. 3. Bilateral eye surgery. 4. Hemorrhoidectomy. 5. Bladder sling. 6. Back surgery. 7. Facelift. 8. Tummy tuck. FAMILY HISTORY: Noncontributory. SOCIAL HISTORY: The patient denies any tobacco use or alcohol. CURRENT MEDICATIONS: Aricept 10 mg at bedtime, Nitrostat sublingual p.r.n[address] [place] [address] CONSULTATION Name: BACILIO LEZAMA Room: [address] Mala Fisher#: [id number] Admission: 10/06/20 Attend Phys: Thomas Whitehead MD Discharge: 10/07/20 Date of : 38 Report #: [id number] Prevagen, trazodone 50 mg at bedtime, Nexium 40 mg daily, Requip 0.5 mg daily. REVIEW OF SYSTEMS: A 14-point review of systems as per HPI, otherwise unremarkable. PHYSICAL EXAMINATION: VITAL SIGNS: Stable. Blood pressure 139/69, pulse is 58 and regular. GENERAL: This is a pleasant lady in no distress. Mood and affect appropriate. HEENT: Extraocular muscles intact. Mucous membranes are moist. NECK: Shows no jugular venous distention. There are no carotid bruits. CHEST: Reveals clear lung yang without wheezes or rales. CARDIOVASCULAR: Reveals regular rhythm, normal S1, S2. I do not appreciate gallop or murmur. ABDOMEN: Reveals normal bowel sounds. The abdomen is soft, nontender. EXTREMITIES: Shows no edema. SKIN: Dry. IMAGING STUDIES: EKG on arrival shows atrial fibrillation with rapid ventricular response rate. Telemetry shows sinus rhythm at this time. Chest x-ray shows no acute cardiopulmonary abnormality. LABORATORY DATA: Reviewed. Sodium 145, potassium 4.1, chloride 109, bicarbonate 27, BUN 27, creatinine 1.6, serum glucose 97. EGFR 31. Troponins as outlined above. NT-proBNP 726, total cholesterol 201, triglycerides 185, HDL 52, LDL 112. White blood cell count 6.7, hemoglobin 11.4, platelet count 255,000. IMPRESSION AND RECOMMENDATIONS: 1. Paroxysmal atrial fibrillation, now in sinus rhythm. We would recommend a low dose beta adam at this time and consider antiarrhythmic if she has recurrence of atrial arrhythmias. She is CHADS score 2 and we will provide with anticoagulant. 2. Coronary artery disease, presently appears stable. She did have a bump in her troponin in the setting of atrial fibrillation with a rapid ventricular response rate. I believe this represents a type 2 myocardial infarction. I would start a daily aspirin and a low dose beta adam. 3. Dyslipidemia in this setting. We would recommend low dose atorvastatin. 4. Presently, the patient appears stable from a cardiac standpoint. We will arrange outpatient stress testing and follow up with Cardiology. By: 1716 56Osvaldo Christine MD, FACC /nt
[~2020-10-06 16:13] MED LIST changes: +NITROSTAT0.4 M1
[2020-10-06 16:23] VITALS: BP 115/76
[2020-10-06] MEDS ORDERED: TRAZODONE HCL50 MG PO (16:27)
[2020-10-06] MEDS ORDERED: NEXIUM 40 MG CA40 M1 PO (16:27)
[2020-10-06] MEDS ORDERED: PREVAGEN (16:27)
[2020-10-06] MEDS ORDERED: ROPINIROLE HCL0.5 MG PO (16:28)
[2020-10-06 16:40] LABS: ABSOLUTE BASOPHILS 0.1 thou/uL (0.0-0.2); ABSOLUTE EOSINOPHILS 0.3 thou/uL (0.0-0.7); ABSOLUTE LYMPHOCYTES 2.2 thou/uL (0.8-5.3); ABSOLUTE MONOCYTES 0.6 thou/uL (0.0-1.2); ABSOLUTE NEUTROPHILS 3.5 thou/uL (1.6-8.1); BASOPHILS 1.1 %; HEMATOCRIT 33.8 % (37.0-47.0); HEMOGLOBIN 11.4 gm/dL (12.0-15.0); LYMPHOCYTES 32.2 %; MCHC 33.8 g/dL (28.0-37.0); MCV 94.5 fL (80.0-100.0); MONOCYTES 9.3 %; MPV 8.3 fl. (7.2-11.1); NUCLEATED RBCS 0 /100WBC; PLATELET COUNT* 255 thou/uL (150-400); POLYS 52.4 %; RBC 3.58 mil/uL (4.20-5.00); RDW-CV 13.5 % (10.5-14.5); WBC 6.7 thou/uL (4.0-11.0)
[2020-10-06 16:50] LABS: CREATININE 1.4 mg/dL (0.6-1.3); POTASSIUM 4.1 mmol/L (3.5-5.1)
[2020-10-06 16:53] LABS: ALBUMIN 3.5 g/dL (3.4-5.0); APTT 21.9 Seconds (25.0-31.3); INR 0.9; MAGNESIUM 2.2 mg/dL (1.8-2.4); PROTIME 9.8 Seconds (9.20-11.50); TOTAL BILIRUBIN 0.2 mg/dL (<0.1-1.0); TOTAL PROTEIN 6.7 g/dL (6.4-8.2)
[2020-10-06 20:08] VITALS: BP 125/46
[2020-10-06 21:00] VITALS: BP 140/52
[2020-10-07] VITALS: BP 108/51
[2020-10-07 04:00] VITALS: BP 132/40
[2020-10-07 04:43] LABS: ANION GAP 9 mmol/L (7-16); BUN 27 mg/dL (7-18); CALCIUM 8.9 mg/dL (8.5-10.1); CHLORIDE 109 mmol/L (98-107); CHOLESTEROL 201 mg/dL (<200); CO2 27 mmol/L (21-32); CREATININE 1.6 mg/dL (0.6-1.3); GLUCOSE 97 mg/dL (70-99); HDL CHOLESTEROL 52 mg/dL (>40); LDL CHOLESTEROL 112 mg/dL (<100); MAGNESIUM 2.1 mg/dL (1.8-2.4); POTASSIUM 4.1 mmol/L (3.5-5.1); SODIUM 145 mmol/L (136-145); TC:HDL 3.9 Ratio (Not establshd); TRIGLYCERIDE 185 mg/dL (<150); VLDL 37 mg/dL (<40)
[2020-10-07 04:45] LABS: SERUM ASSESSMENT CLEAR
--- NOTE | 2020-10-07 04:50 | NUR ---
PT AO X4 FROM HOME WHERE SHE IS CAREGIVER TO HER , SHE STATES SHE HAS BEEN HAVING CHEST PAINS FOR SEVERAL MONTHS BUT YESTERDAY THEY GOT CONCERNING ENOUGH FOR HER TO GO TO HER PCP WHO SENT HER TO ED. PT TROPONINS HAVE BEEN ELEVATED, 0.07,0.26, AND 0.65. DR CACERES NOTIFIED WITH NO NEW ORDERS GIVEN. PT HEART IS IRREGULAR ON TELE MONITOR. PT IS ANXIOUS TO BE DISCHARGED DUE TO HER APPOINTMENT FOR COVID VACCINE IS TODAY. SHE IS SCHEDULED TO HAVE CARDIO CONSULT AND HAS BEEN NPO SINCE MIDNIGHT.
[2020-10-07 08:00] VITALS: BP 108/54
--- NOTE | 2020-10-07 08:11 | NUR ---
PT HAS NO IV ACCESS. I STARTED 22G IV RIGHT HAND. PREVIOUS IV NOT CHARTED DISCONTINUED BY NIGHT RN.
--- NOTE | 2020-10-07 08:16 | NUR ---
CM COMPLETED AN ASSESSMENT TO DISCUSS D/C PLANNING. PT AAOX4. PT LIVES HOME AND "TAKE CARE OF MY HANDICAPPED ." PT IS ACTIVE, "I'M VERY AGILE." PT COMPLETED ALL HER OWN CHORES AND ERRANDS. PT IS INDEPENDENT W/CARE. PT HAS 0 DMES. DENIES HX WITH HH/SNF. NO ANTICIPATED CM NEEDS.
--- NOTE | 2020-10-07 11:05 | EKG ---
[place] [id number] ELECTROCARDIOGRAM REPORT Name: BACILIO LEZAMA Room: [address] ADM IN M.R.#: [id number] Admission: 10/06/20 Attend Phys: Thomas Whitehead, Discharge: Date of : 38 Date of Service: 10/06/20 1620 Report #: [id number] THIS REPORT FOR: //name// [facility] ED Test Date: 2020-10-06 Test Time: 16:20:56 Pat Name: BACILIO LEZAMA Department: Room: [facility] Gender: F Real Estate Assistant: TP : 1940 Requested By: Jakob Arizmendi Order Number: [id number] MD: Abdias Menon Measurements Intervals [place] Rate: 75 P: 87 IL: 152 QRS: 59 QRSD: 77 T: 70 QT: 328 QTc: 367 Interpretive Statements Sinus rhythm Atrial premature complex Minimal ST depression, inferior leads Compared to ECG 07/01/2020 15:06:27 ST (T wave) deviation now present Sinus bradycardia no longer present Electronically Signed On 10-07-2020 11:05:18 DIRECTOR MEDICAL SURGICAL by Abdias Menon [email or web address] <ELECTRONICALLY SIGNED> By: Abdias Menon MD, FACC 10/07/20 1105 1620 1620 Abdias Menon MD, FAC /EPI
[2020-10-07 12:30] VITALS: BP 97/49
--- NOTE | 2020-10-07 13:14 | NUR ---
DENZEL HICKEY INFORMED ME THAT PT WILL NOT HAVE HEART CATH TILL TOMORROW R/T ELEVATED CREATININE. PLACED HEART HEALTHY DIET FOR PATIENT AND WILL MAKE NPO AFTER MIDNIGHT.
--- NOTE | 2020-10-07 16:35 | NUR ---
PT BECOMING RESTLESS WAITING FOR DOCTOR ANBD PULLED OUT IV. WANTS TO GO HOME.
[2020-10-07 16:50] VITALS: BP 139/69
[2020-10-07] MEDS ORDERED: BAYER CHEWABLE81 MG PO (17:35)
[2020-10-07] MEDS ORDERED: ELIQUIS5 MG PO (17:35)
[2020-10-07] MEDS ORDERED: NITROGLYCERIN0.4 MG SUBLING (17:35)
[2020-10-07] MEDS ORDERED: ATORVASTATIN CA20 MG PO (17:35)
[2020-10-07] MEDS ORDERED: METOPROLOL SUCC25 M1 PO (17:35)
[2020-10-07 17:41] VITALS: BP 139/69
== END 2020-10-07 18:00 | disposition home or self-care (01) ==
LOC: M.ERS 16:13 → M.TBA-ER 17:27 → M.2W 17:27
PROVIDERS: Emergency Medicine Emergency Medical Services; ADMIT Internal Medicine; ATTEND Internal Medicine
DX: I48.0 Paroxysmal atrial fibrillation (principal); K21.9 Gastro-esophageal reflux disease without esophagitis; E78.5 Hyperlipidemia, unspecified; R77.8 Other specified abnormalities of plasma proteins; I25.10 Atherosclerotic heart disease of native coronary artery without angina pectoris; N18.30 Chronic kidney disease, stage 3 unspecified; I21.4 Non-ST elevation (NSTEMI) myocardial infarction; Z79.82 Long term (current) use of aspirin; Z79.899 Other long term (current) drug therapy; Z20.822 Contact with and (suspected) exposure to COVID-19

== ENCOUNTER → 2020-10-21 | Outpatient (CLI) | payer MEDICARE, OTHER ==
[~2020-10-21] MED LIST changes: +ATORVASTATIN CA20 MG PO; +BAYER CHEWABLE81 MG PO; +ELIQUIS5 MG PO; +NITROGLYCERIN0.4 MG SUBLING; +PREVAGEN; +ROPINIROLE HCL0.5 MG PO
--- NOTE | 2020-10-21 17:59 | CARDNUC ---
[place] [address] CARDIAC NUCLEAR IMAGING REPORT Name: BACILIO LEZAMA [id number] Admission: 10/21/20 Attend Phys: Osvaldo Christine, Discharge: Date of : 38 Date of Service: 10/21/20 1759 Report #: [id number] THIS REPORT FOR: cc: Zhane Chan Maggie M. DO Liston, Michael J. MD [facility] ~ APPROVED REPORT Study performed: 10/21/2020 14:37:44 Exam: Nuclear Stress Test Indication: Chest pain, Troponin elevation Patient Location: Out-Patient Stress Tech: Samantha Barney Stress Nurse: Sandra Campbell RN Ht: 5 ft 2 in Wt: 128 lbs BSA: 1.58 m2 BMI: 23.40 Medical History Medical History: mi, cad, hyperlipidemia Medications: apixaban, asa, metoprolol,ntg Allergies: codeine, pnc, sulfa Cardiac Risk Factors: Age, Hyperlipidemia Previous Cardiac Procedures: PCI, Myocardial infarction Exercise History: Indeterminate Meds Held (24 hrs): metoprolol Stress Test Details Stress Test: Pharmacologic stress testing performed using 0.4 mg of regadenoson per 5 mL given IV over 10 seconds. Reason for pharmacologic stress test: physical limitation. HR Resting HR: 64 bpm Max Heart Rate (APMHR): 139 bpm Max HR Achieved: 106 bpm Target HR (85% APMHR): 118 bpm % of APMHR: 76 Recovery HR: 94 bpm BP Resting BP: 154/67 mmHg Max BP: 146/[place] [address] CARDIAC NUCLEAR IMAGING REPORT Name: LISEBACILIO oSria Room: [facility]#: [id number] Admission: 10/21/20 Attend Phys: Osvaldo Christine, Discharge: Date of : 38 Date of Service: 10/21/20 1759 Report #: [id number] Resting ECG: Sinus Rhythm Stress ECG: Sinus Tachycardia ST Change: Downsloping ST depression Maximum ST Deviation: 0.5 mm Arrhythmia: None Recovery ECG: Sinus Rhythm Recovery ST Change: Downsloping ST depression Recovery ST Deviation: 0.5 mm Recovery Arrhythmia: None Clinical Reason for Termination: Completed protocol Angina Score: Non-Limiting The patient tolerated Lexiscan infusion without significant cardiac symptoms. Nurse Comments pt gait unsteady. cannot walk on treadmill Stress ECG Conclusion The baseline twelve-lead EKG shows sinus rhythm without significant ST segment abnormality. EKGs obtained during and post Lexiscan infusion show sinus rhythm and sinus tachycardia with subtle 0.[address] segment depression in the inferolateral leads. No significant stress-induced arrhythmias were noted. NM EXAM: Myocardial Perfusion REST/STRESS Imaging Protocol: Rest Tc-99m/Stress Tc-99m 1 day Resting Data Rest SPECT myocardial perfusion imaging was performed in supine position 30 minutes following the intravenous injection of 10.2 mCi of Tc-99m Sestamibi. Time of rest injection: 13:10 The images were gated to evaluate regional wall motion and calculate left ventricular ejection fraction. Administration Route: IV Administration Site: Right Arm Pharmacologic Stress Pharmacologic stress test was performed by injecting Regadenoson 0.4 mg IV push followed by the intravenous injection of 32.7 mCi of Tc-99m Sestamibi. Time of stress injection: 14:50 Administration Route: IV Administration Site: [place] [address] CARDIAC NUCLEAR IMAGING REPORT Name: NYSRIKANTHBACILIO Room: [facility]#: [id number] Admission: 10/21/20 Attend Phys: Osvaldo Christine, Discharge: Date of : 38 Date of Service: 10/21/20 1759 Report #: [id number] Heart Rate at time of stress injection: 106 bpm. Gated Stress SPECT was performed 40 minutes after stress injection. The images were gated to evaluate regional wall motion and calculate left ventricular ejection fraction. Study Quality Study: Good Artifact: No artifact Study Data At rest, the left ventricular ejection fraction was 68%.. Post stress, the left ventricular ejection was 76%.. TID = 1.02. Perfusion Perfusion images obtained at rest and post Lexiscan stress show uniform uptake of the radioisotope throughout the myocardium. There were no defects to suggest infarct or ischemia. Wall Motion Normal left ventricular wall motion. Nuclear Conclusion ECG Findings: non-diagnostic Clinical Findings: negative for ischemia Nuclear Findings: negative for ischemia Exercise Capacity: not assessed Left Ventricular Function: normal Risk Study: low Perfusion study show no defect to suggest infarct or ischemia. Left ventricular systolic function appears normal on gated studies. This is a low risk study. <Conclusion> The baseline twelve-lead EKG shows sinus rhythm without significant ST segment abnormality. EKGs obtained during and post Lexiscan infusion show sinus rhythm and sinus tachycardia with subtle 0.[address] segment depression in the inferolateral leads. No significant stress-induced arrhythmias were noted. <ELECTRONICALLY SIGNED> By: Osvaldo Christine MD, FACC 10/21/20 1759 58 58 Osvaldo Christine MD, FACC /INF
== END ==
LOC: M.NUC 10-19 12:27
PROVIDERS: ATTEND Internal Medicine Cardiovascular Disease
DX: R77.8 Other specified abnormalities of plasma proteins (principal)